=== PATIENT | female | born 1995 | race Caucasian/White ===

== ENCOUNTER → 2023-02-19 | Outpatient (CLI) | payer OTHER, SELFPAY ==
[2023-02-19 16:03] LABS: Absolute Lymphocyte Count 2.08 X10^3/uL (0.83-4.51); Absolute Neutrophil Count 11.3 X10^3/uL (2.0-7.7); Basophil# 0.03 X10^3/uL; Basophil% 0.2 % (0-1); Eosinophils% 0.7 % (0-5); Hematocrit 33.4 % (37-47); Hemoglobin 11.1 g/dL (12.0-15.0); Lymphocyte # 2.08 X10^3/ul (0.83-4.51); Lymphocyte % 14.5 % (19-41); Mean Corp Hgb Conc 33.2 g/dL (32-36); Mean Corpuscular Hgb 29.1 pg (27.0-32.0); Mean Corpuscular Volume 87.7 fL (81-99); Monocyte# 0.84 X10^3/uL; Monocyte% 5.8 % (0-10); NRBC Flagged by Analyzer 0 % (0-5); Neutrophil # 11.27 X10^3/uL (2.7-7.7); Neutrophil % 78.5 % (47-70); Platelet Count 401 K/mm3 (150-450); RBC Distribution Width CV 13.3 % (11.6-14.6); RBC Distribution Width SD 42.3 fl (35.1-43.9); Red Blood Count 3.81 M/mm3 (4.2-5.4); White Blood Count 14.4 K/mm3 (4.4-11.0)
[2023-02-19 17:11] LABS: HIV - WCH Non-Reactive (Nonreactive); Hepatitis B Surface Antigen Non-Reactive (Nonreactive); Hepatitis C Antibody Non-Reactive (Nonreactive); Rubella IgG Reactive (Nonreactive); Syphilis Antibodies Non-reactive
== END | disposition home or self-care (01) ==
LOC: LAB 15:15
PROVIDERS: Referring Provider Registered Nurse; Visit Provider Registered Nurse
DX: Z34.90 Encounter for supervision of normal pregnancy, unspecified, unspecified trimester (principal)
CPT/HCPCS: 36415; 85025; 86703; 86762; 86780; 86803; 86850; 86900; 86901; 87340

== ENCOUNTER → 2023-03-31 | Outpatient (CLI) | payer OTHER, SELFPAY ==
--- NOTE | 2023-03-31 12:47 | US_ITS ---
INDICATION: Evaluate anatomy EXAMINATION: Ultrasound US OB Greater Than 14 Weeks TECHNIQUE: Transabdominal pelvic ultrasound was performed. COMPARISON: No prior examinations are available for comparison. LMP: 11/13/2022 Beta-hCG: Unknown. Provided EGA: None. FINDINGS: INTRAUTERINE GESTATION(s): Single. HEART MOTION is 150 bpm. BIOMETRIC MEASUREMENTS: HEAD CIRCUMFERENCE: 4.6 cm cm which corresponds to 19 weeks and 6 days. BIPARIETAL DIAMETER: 17.1 cm cm which corresponds to 19 weeks and 5 days. ABDOMINAL CIRCUMFERENCE: 15.1 cm cm which corresponds to 20 weeks and 2 days. FEMORAL LENGTH: 3.1 cm cm which corresponds to 19 weeks and 5 days. ESTIMATED DUE DATE (COMFORT): 08/20/2023 ESTIMATED WEIGHT: 328 g +/- 49 g PRESENTATION: Cephalic AMNIOTIC FLUID INDEX (ALICE): Within normal limits but not measured. MV 6.3 cm BIOPHYSICAL PROFILE (BPP): Not assessed. PLACENTA: Anterior. There is no placenta previa or abruption. CERVIX: The cervix is closed measuring 4.2 cm in length. MATERNAL OVARIES: Not seen. FREE FLUID: None. ANATOMY: LATERAL VENTRICLES: Within normal limits. CHOROID PLEXUS: Visualized. MIDLINE FALX: Visualized. CAVUM SEPTUM PELLUCIDI: Not visualized. CEREBELLUM: Unremarkable CISTERNA MAGNA: Within normal limits. UPPER LIP: Appears to be intact. FOUR CHAMBER HEART VIEW: Unremarkable. LEFT VENTRICULAR OUTFLOW TRACT: Visualized. RIGHT VENTRICULAR OUTFLOW TRACT: Visualized. STOMACH: Visualized. KIDNEYS: Visualized, no hydronephrosis. URINARY BLADDER: Visualized. UMBILICAL CORD INSERTION into the abdomen: Unremarkable. UMBILICAL CORD vessel number: Normal three vessel cord. SPINE: Appears to be unremarkable. UPPER AND LOWER EXTREMITIES: Present. GENDER: Appears to be female. US/OB Anatomy w/ Transvaginal IMPRESSION: Single live intrauterine with an estimated gestational age of 19 weeks and 5 days. The COMFORT is 08/20/2023. Electronically Signed: Pierre Ramirez MD at 8:51 EDT ,
== END | disposition home or self-care (01) ==
LOC: OPUS 12:46
PROVIDERS: Referring Provider Obstetrics & Gynecology; Visit Provider Obstetrics & Gynecology
DX: Z34.92 Encounter for supervision of normal pregnancy, unspecified, second trimester (principal)
CPT/HCPCS: 76805; 76817

== ENCOUNTER → 2023-05-27 | Outpatient (CLI) | payer OTHER, SELFPAY ==
[2023-05-27 13:55] LABS: Absolute Lymphocyte Count 2.13 X10^3/uL (0.83-4.51); Absolute Neutrophil Count 13.5 X10^3/uL (2.0-7.7); Basophil# 0.04 X10^3/uL; Basophil% 0.2 % (0-1); Eosinophils% 0.6 % (0-5); Hematocrit 31.3 % (37-47); Lymphocyte # 2.13 X10^3/ul (0.83-4.51); Lymphocyte % 12.7 % (19-41); Mean Corp Hgb Conc 31.9 g/dL (32-36); Mean Corpuscular Hgb 29.2 pg (27.0-32.0); Mean Corpuscular Volume 91.5 fL (81-99); Mean Platelet Vol. 9.5 fl (6.2-12.0); Monocyte# 0.92 X10^3/uL; Monocyte% 5.5 % (0-10); NRBC Flagged by Analyzer 0 % (0-5); Neutrophil # 13.49 X10^3/uL (2.7-7.7); Neutrophil % 80.2 % (47-70); Platelet Count 362 K/mm3 (150-450); RBC Distribution Width CV 14.1 % (11.6-14.6); RBC Distribution Width SD 47.3 fl (35.1-43.9); Red Blood Count 3.42 M/mm3 (4.2-5.4); White Blood Count 16.8 K/mm3 (4.4-11.0)
[2023-05-27 14:03] LABS: Glucose Challenge Gest 1H 50g 152 mg/dL (70-140)
[2023-05-27 14:58] LABS: HIV - WCH Non-Reactive (Nonreactive); Syphilis Antibodies Non-reactive
== END | disposition home or self-care (01) ==
LOC: PAVLAB 13:39
PROVIDERS: Referring Provider Nurse Practitioner Women's Health; Visit Provider Nurse Practitioner Women's Health
DX: Z34.90 Encounter for supervision of normal pregnancy, unspecified, unspecified trimester (principal)
CPT/HCPCS: 36415; 82950; 85025; 86703; 86780

== ENCOUNTER → 2023-06-04 | Outpatient (CLI) | payer OTHER, SELFPAY ==
[2023-06-04 09:35] LABS: Glucose GTT- Fasting 90 mg/dL (74-106)
[2023-06-04 09:54] LABS: Glucose GTT-30 minutes 153 mg/dL (110-170)
[2023-06-04 10:59] LABS: Glucose GTT- 1 Hour 166 mg/dL (120-170)
[2023-06-04 11:59] LABS: Glucose GTT- 2 Hour 132 mg/dL (70-120)
[2023-06-04 12:53] LABS: Glucose GTT- 3 Hour 98 mg/dL (74-106)
== END | disposition home or self-care (01) ==
LOC: LAB 08:35
PROVIDERS: PCP Family Medicine; Referring Provider Advanced Practice Midwife; Visit Provider Advanced Practice Midwife
DX: O99.810 Abnormal glucose complicating pregnancy (principal); Z3A.00 Weeks of gestation of pregnancy not specified
CPT/HCPCS: 82951; 82952

== ENCOUNTER → 2023-06-25 | Outpatient (CLI) | payer OTHER, SELFPAY ==
[2023-06-25 16:43] LABS: Absolute Lymphocyte Count 1.98 X10^3/uL (0.83-4.51); Absolute Neutrophil Count 12.4 X10^3/uL (2.0-7.7); Basophil# 0.02 X10^3/uL; Basophil% 0.1 % (0-1); Eosinophil# 0.12 X10^3/uL; Eosinophils% 0.8 % (0-5); Hematocrit 31.1 % (37-47); Hemoglobin 10.4 g/dL (12.0-15.0); Lymphocyte # 1.98 X10^3/ul (0.83-4.51); Lymphocyte % 12.6 % (19-41); Mean Corp Hgb Conc 33.4 g/dL (32-36); Mean Corpuscular Hgb 29.8 pg (27.0-32.0); Mean Corpuscular Volume 89.1 fL (81-99); Mean Platelet Vol. 10.1 fl (6.2-12.0); Monocyte# 1.14 X10^3/uL; Monocyte% 7.2 % (0-10); NRBC Flagged by Analyzer 0 % (0-5); Neutrophil # 12.39 X10^3/uL (2.7-7.7); Neutrophil % 78.7 % (47-70); Platelet Count 358 K/mm3 (150-450); RBC Distribution Width CV 13.9 % (11.6-14.6); RBC Distribution Width SD 45.3 fl (35.1-43.9); Red Blood Count 3.49 M/mm3 (4.2-5.4); White Blood Count 15.8 K/mm3 (4.4-11.0)
== END | disposition home or self-care (01) ==
LOC: LAB 16:06
PROVIDERS: PCP Family Medicine; Referring Provider Registered Nurse; Visit Provider Registered Nurse
DX: O99.019 Anemia complicating pregnancy, unspecified trimester (principal); Z3A.00 Weeks of gestation of pregnancy not specified
CPT/HCPCS: 36415; 85025

== ENCOUNTER → 2023-07-23 | Outpatient (CLI) | payer OTHER, SELFPAY ==
--- OUTSIDE RECORDS SUMMARY | 2023-07-23 20:46 | XMS RPT_ITS | CCD ---
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 Name Role Phone DAVIE MURPHY Unavailable Unavailab DONAL Mathews SR Unavailable Unavail able Stencel, Bebeto Unavailable Unavailable Stencel, Bebeto Unavailable Unavailable Wood, Gwen L Unavailable Unavailable Wood, Gwen Rodriguez Unavailable Unavailable Stencel, Bebeto Unavailable Unavailable Unavailable Primary Care Provider UnavailJOYCE Calvo Attending Unavailable SELF, SELF Referring Unavailable JOYCE VAZQUEZ Attending Unavailable JOYCE VAZQUEZ Referring Unavailable DONAL BUNCH Primary Care UnavailRAMIREZ Henning Attending Unavailable Donal Bunch Primary Care Provider René Bonilla Unavailable [phone] Unavailable Unavailable MD SABIHA GRIMALDO Attending Unavail able Irene, Dr. René Watts Primary Care Un available MD SABIHA GRIMALDO Referring Unavail able MD SABIHA GRIMALDO Attending Unavail able Irene, Dr. René Watts Primary Care Un available MD SABIHA GRIMALDO Referring Unavail able MD SABIHA GRIMALDO Attending Unavail able Irene, Dr. René Watts Primary Care Un available Allergies Allergy Classification Reported Allergen(s) Allergy Type Date of Onset Reaction(s) Facility (4 sources) SUMAtriptan; Translations: [SUMATRIPTAN] Drug Allergy 3 Shortness of Breath [facility] (5 sources) traMADol; Translations: [TRAMADOL] Drug Allergy 7 [facility] (8 sources) SUMAtriptan; Translations: [Imitrex] Drug Allergy [facility] Medications Current Medications Medication Drug Class(es) Dates Sig (Normalized) Sig (Original) acetaminophen 325 mg / HYDROcodone bitartrate 5 mg oral tablet (2 sources) Opioid Agonist Start: 07-09-2019 End: 07-10-2019 take 1 tablet by mouth every eight hours as needed for pain HYDROcodone-aceta minophen (NORCO) 5-325 mg per tablet Indications: Pain, dental Take 1 (one) tablet by mouth every 8 (eight) hours as needed for pain (Days supply per fill: {DAYS SUPPLY:1) . 3 tablet 0 07/09/2019 07/10/2019 Active Completed/Discontinued Medications Medication Drug Class(es) Dates Sig (Normalized) Sig (Original) sertraline 50 mg oral tablet (7 sources) Serotonin Reuptake Inhibitor Start: 09-25-2019 take 1 tablet by mouth once daily Sertraline HCl - 50 MG Oral Tablet Take 1 tablet daily Quantity: 90 Refills: 3 Ordered: 14-Sep-2022 Bebeto Dior MD Start : 25-Sep-2019 Active Problems Active Problems Problem Classification Problem Date Documented Da te Episodic/Chronic Acute and chronic tonsillitis (7 sources) Acute tonsillitis, unspecified; Translations: [Pharyngotonsillitis ] Episodic Anxiety disorders (7 sources) Anxiety; Translations: [Anxiety state, unspecified] Chronic Asthma (7 sources) Asthma; Translations: [Asthma, unspecified type, unspecified] Chronic Fever of unknown origin (1 source) Fever; Translations: [Fever, unspecified fever cause] Episodic Gastrointestinal hemorrhage (7 sources) Hematochezia; Translations: [Blood in stool] Episodic Headache; including migraine (7 sources) Migraine; Translations: [Migraine, unspecified, without mention of intractable migraine without mention of status migrainosus] Chronic Immunizations and screening for infectious disease (16 sources) Patient encounter status; Translations: [Other specified vaccination] Onset: 02-03-2023 Episodic Malaise and fatigue (7 sources) Fatigue; Translations: [Other malaise and fatigue] Episodic Menstrual disorders (1 source) Amenorrhea; Translations: [Absence of menstruation] Chronic Nausea and vomiting (1 source) Nausea and vomiting; Translations: [Nausea and vomiting, intractability of vomiting not specified, unspecified vomiting type] Episodic Other gastrointestinal disorders (1 source) Diarrhea; Translations: [Diarrhea, unspecified type] Episodic Other lower respiratory disease (7 sources) Dyspnea; Translations: [Other respiratory abnormalities] Episodic Other and delivery including normal (1 source) Urine test positive; Translations: [ examination or test, positive result] Episodic Other screening for suspected conditions (not mental disorders or infectious disease) (2 sources) Encounter for screening for malignant neoplasm of cervix; Translations: [Encounter for screening for malignant neoplasm of cervix] Onset: 02-03-2023 Episodic Other upper respiratory disease (7 sources) Pain in throat; Translations: [Throat pain] Episodic Residual codes; unclassified (4 sources) Gestation period, 12 weeks; Translations: [ state, incidental] Episodic Spondylosis; intervertebral disc disorders; other back problems (1 source) Acute low back pain; Translations: [Acute low back pain, unspecified back pain laterality, with sciatica presence unspecified] Episodic Past or Other Problems Problem Classification Problem Date Documented Da te Episodic/Chronic Disorders of teeth and jaw (1 source) Toothache; Translations: [Pain, dental] Episodic Fracture of lower limb (2 sources) Other fracture of upper and lower end of left fibula, subsequent encounter for closed fracture with routine healing; Translations: [Other fracture of upper and lower end of left fibula, subsequent encounter for closed fracture with routine healing] Onset: 01-18-2017 Episodic Unclassified (5 sources) Finding of menstrual bleeding; Translations: [Menstruation] Results Test Name Value Interpretation Reference Range Facil ity Vital Signs Date Time Vital Sign Value Performing Clinician Facility 02-03-2023 15:18-0400 Body height 154.94 cm René Ancanco Phone: [employer] [employer] Work Phone: 02-03-2023 15:18-0400 Body mass index (BMI) [Ratio] 26.16 kg/m2 [email or web address] Phone: [employer] Work Phone: 02-03-2023 15:18-0400 Body surface area Derived from formula 1.62 m2 [email or web address] Phone: [employer] Work Phone: 02-03-2023 15:18-0400 Body weight 62.8 kg René Ancanco Phone: [place] [address] [place] Work Phone: 02-03-2023 15:18-0400 Diastolic blood pressure 66 mm[Hg] René Jose Furness Work Phone: [facility] [employer] Work Phone: 02-03-2023 15:18-0400 Systolic blood pressure 124 mm[Hg] René T Furness Work Phone: [place] [address] [place] Work Phone: 01-08-2023 14:18-0400 Body height 154.94 cm René Jose Furness Work Phone: [facility] [address] [place] Work Phone: 01-08-2023 14:18-0400 Body mass index (BMI) [Ratio] 26.12 kg/m2 René Jose Furness Work Phone: [place] [address] [place] Work Phone: 01-08-2023 14:18-0400 Body surface area Derived from formula 1.61 m2 René T Furness Work Phone: [place] [facility] [address] [place] Work Phone: 01-08-2023 14:18-0400 Body weight 62.7 kg René T Furness Work Phone: [place] [address] [place] Work Phone: 01-08-2023 14:18-0400 Diastolic blood pressure 64 mm[Hg] René T Furness Work Phone: [place] [address] [place] Work Phone: 01-08-2023 14:18-0400 Systolic blood pressure 122 mm[Hg] René T Furness Work Phone: [place] [facility] [address] [place] Work Phone: 07-09-2019 04:35-0500 BMI (Body Mass Index) 26.45 kg/m2 [facility] 07-09-2019 04:35-0500 Body Temperature 97.81 [degF] [facility] 07-09-2019 04:35-0500 Body weight 63.5 kg [facility] 07-09-2019 04:35-0500 BP Diastolic 72 mm[Hg] [facility] 07-09-2019 04:35-0500 BP Systolic 122 mm[Hg] [facility] 07-09-2019 04:35-0500 Height 154.9 cm [facility] 07-09-2019 04:35-0500 Pulse (Heart Rate) 114 /min [facility] 07-09-2019 04:35-0500 Pulse Oximetry 100 % [facility] 07-09-2019 04:35-0500 Respiratory Rate 18 /min [facility] 08-15-2018 20:04-0500 BMI (Body Mass Index) 29.48 kg/m2 [facility] Work Phone: 08-15-2018 20:04-0500 Body Temperature 100.6 [degF] [facility] Work Phone: 08-15-2018 20:04-0500 BP Diastolic 77 mm[Hg] [facility] Work Phone: 08-15-2018 20:04-0500 BP Systolic 128 mm[Hg] [facility] Work Phone: 08-15-2018 20:04-0500 Height 154.9 cm [facility] Work Phone: 08-15-2018 20:04-0500 Pulse (Heart Rate) 125 /min [facility] Work Phone: 08-15-2018 20:04-0500 Pulse Oximetry 98 % [facility] Work Phone: 08-15-2018 20:04-0500 Respiratory Rate 16 /min Joyce [facility] Work Phone: 08-15-2018 20:04-0500 Weight 70.76 kg Joyce [facility] Work Phone: Encounters Encounter Date Encounter Type Care Provider Facility Start: 02-09-2023 Chart Update René T Furn ess Work Phone: [facility] [address] [place] Work Phone: Start: 02-05-2023 Chart Update René T Furn ess Work Phone: [facility] [address] [place] Work Phone: Start: 02-04-2023 Chart Update René T Furn ess Work Phone: [facility] [address] [place] Work Phone: Start: 02-03-2023 Office outpatient ne w 45 minutes René T Furness Work Phone: [facility] [address] [place] Work Phone: Start: 02-03-2023 ambulatory MD SABIHA GRIMALDO Facility:[facility] Start: 01-08-2023 Office outpatient ne w 30 minutes René T Furness Work Phone: [facility] [address] [place] Work Phone: Start: 01-08-2023 ambulatory MD SABIHA GRIMALDO Facility:[id number] Start: 09-14-2022 AUDIT René T Furn ess Work Phone: [facility] Work Phone: Start: 08-26-2021 AUDIT René T Furn ess Work Phone: [facility] Work Phone: Start: 07-09-2019 End: 07-09-2019 Emergency department patient visit DONAL OSBORNE [facility] Start: 07-09-2019 End: 07-09-2019 Emergency department patient visit Ramirez Jay Work Phone: [facility] Emergency Department Procedures Date Procedure Procedure Detail Performing Clinician Start: 08-15-2018 End: 08-15-2018 Urnls dip stick/tablet rgnt non-auto w/o micrscp Joyce Vazquez Work Phone: Start: 08-15-2018 End: 08-15-2018 Iaadiadoo influenza Joyce Vazquez Work Phone: Start: 08-15-2018 End: 08-15-2018 Gluc bld gluc mntr dev cleared fda spec home use Joyce Vazquez Work Phone: No history of surgery Deric Garcia [employer] Work Phone: Plan of Treatment Date Care Activity Detail Author Start: 02-24-2023 EPVOB, Provider: Sabiha Grimaldo, Status: Pen, Time: 3:45 PM EPVOB, Provider: Sabiha Grimaldo, Status: Pen, Time: 3:45 PM [employer] [employer] Work Phone: Start: 02-03-2023 EPVOB, Provider: Sabiha Grimaldo, Status: Pen, Time: 2:45 PM EPVOB, Provider: Sabiha Grimaldo, Status: Pen, Time: 2:45 PM [facility] [employer] Work Phone: Start: 09-02-2021 EPV, Provider: Bebeto Dior, Status: Pen, Time: 8:20 AM EPV, Provider: Bebeto Dior, Status: Pen, Time: 8:20 AM [facility] Work Phone: Start: 2019 Influenza vaccination INFLUENZA VACC INE (#1) [facility] Start: 2019 Influenza vaccinatio n given SEQUENTIAL INFLUENZA VACCINE (#1) [facility] Start: 08-15-2018 End: 08-15-2018 Ambulatory 08/15/2018 Lab Encounter Clinical Pathology/Laboratory Medicine Joyce Vazquez, INCINERATOR OPERATOR [address] [place] [address] [phone] [facility] Immunizations Immunization Date Immunization Notes Care Provider Fa keyur 08-28-2020 Moderna COVID-19 Vaccine 100 MCG/0.5ML Intramuscular Suspension René Bonilla Work Phone: [facility] Work Phone: Payers Date Payer Category Payer Unknown 2016 Unknown [id number] 2016 Unknown xxxxxxxxxxxx [id number] 1995 Unknown [id number] 1995 Unknown [id number] [id number] 1995 Unknown [id number] [id number] 1995 Unknown [id number] 2.16. [id number] 1995 Unknown [id number] [id number]. [id number] 1995 Unknown [id number] 2.16. [id number] Unknown [id number] Social History Date Type Detail Facility Start: 08-15-2018 End: 07-09-2019 Tobacco smoking status NHIS Current every day smoker [facility] Work Phone: Start: 08-15-2018 End: 07-09-2019 Cigarettes smoked current (pack per day) - Reported [facility] Work Phone: Clinical Note 02-03-2023 Note Date & Type Note Facility 02-03-2023 Note 18 Date of Procedure: 02/03/2023 Pathologist: [facility], Cytology Date Reported: 02/08/2023 Date Received: 02/04/2023 Submitting Physician: SABIHA GRIMALDO MD FINAL CYTOLOGICAL INTERPRETATION A. THINPREP PAP CERVICAL: Specimen Adequacy: SATISFACTORY FOR EVALUATION. Quality Indicator: Absence of endocervical/transformation zone component. General Categorization: NEGATIVE FOR INTRAEPITHELIAL LESION OR MALIGNANCY. Ancillary Testing: Specimen does not meet the requisition-stated criteria for HPV testing. See Pap test interpretation above. This specimen has been analyzed by the [employer] System ([employer] an automated imaging and review system, which assists the laboratory in evaluating cells on ThinPrep Pap tests. Following automated imaging, selected reyes from every slide were reviewed by a cleaning staff supervisor and/or pathologist. Electronically Signed Out By [facility], Cytology//IK By the signature on this report, the individual or group listed as making the Final Interpretation/Diagnosis certifies that they have reviewed this case. Diagnostic interpretation performed at [facility] [address] [address] [place] [id number] Educational Note: Cervical cytology is a screening procedure primarily for squamous cancers and precursors and has associated false-negative and false-positive results as evidenced by published data. Your patient?s test should be interpreted in this context, together with patient?s history and clinical findings. Regular sampling and follow-up of unexplained clinical signs and symptoms are recommended to minimize false negative results. Clinical History Date of Last Menstrual Period: 11/11/2022 Other Clinical Conditions: HPV Reflex for ASC-US only - Include HPV Genotype Clinical Diagnosis History: Encounter for Papanicolaou smear of cervix - (Z12.4); Screen for STD (sexually transmitted disease) - (Z11.3) Source of Specimen A: THINPREP PAP CERVICAL [facility] Department of Pathology [address] [place] [address] [facility] History of Present illness Narrative 10-24-2022 Note Date & Type Note Facility 10-24-2022 History of Presen t illness Narrative Shortness and states she has been doing menstrual flow since October. She has some nausea and breast tenderness. Denies any vaginal bleeding or abdominal pain. Patient states she has a history of depression. [employer] Phone: Summary Purpose Family History No Family History Records FoundUnknown Family Member Name Dates Details Family history of asthma: Mo ther(V17.5, Z82.5) Status:Active Family history of gastroesop hageal reflux disease: Father(V18.59, Z83.79) Status:Active Unknown Family Member Name Dates Details Family history of asthma: Mo ther(V17.5, Z82.5) Status:Active Family history of gastroesop hageal reflux disease: Father(V18.59, Z83.79) Status:Active Unknown Family Member Name Dates Details Family history of asthma: Mo ther(V17.5, Z82.5) Status:Active Family history of gastroesop hageal reflux disease: Father(V18.59, Z83.79) Status:Active Family history of diabetes m ellitus: Grandmother(V18.0, Z83.3) Status:Active Family history of migraine h eadaches: Mother(V17.2, Z82.0) Status:Active Unknown Family Member Name Dates Details Family history of asthma: Mo ther(V17.5, Z82.5) Status:Active Family history of gastroesop hageal reflux disease: Father(V18.59, Z83.79) Status:Active Family history of diabetes m ellitus: Grandmother(V18.0, Z83.3) Status:Active Family history of migraine h eadaches: Mother(V17.2, Z82.0) Status:Active Unknown Family Member Name Dates Details Family history of asthma: Mo ther(V17.5, Z82.5) Status:Active Family history of gastroesop hageal reflux disease: Father(V18.59, Z83.79) Status:Active Family history of diabetes m ellitus: Grandmother(V18.0, Z83.3) Status:Active Family history of migraine h eadaches: Mother(V17.2, Z82.0) Status:Active Unknown Family Member Name Dates Details Family history of asthma: Mo ther(V17.5, Z82.5) Status:Active Family history of gastroesop hageal reflux disease: Father(V18.59, Z83.79) Status:Active Family history of diabetes m ellitus: Grandmother(V18.0, Z83.3) Status:Active Family history of migraine h eadaches: Mother(V17.2, Z82.0) Status:Active Unknown Family Member Name Dates Details Family history of asthma: Mo ther(V17.5, Z82.5) Status:Active Family history of gastroesop hageal reflux disease: Father(V18.59, Z83.79) Status:Active Family history of diabetes m ellitus: Grandmother(V18.0, Z83.3) Status:Active Family history of migraine h eadaches: Mother(V17.2, Z82.0) Status:Active Advance Directives No Advanced Directives Records FoundDocuments on File Type Date Recorded 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 Await culture results. Tylenol 500-650mg every 6 hours or Ibuprofen 400mg every 8 hours as needed for pain & fever. Remain hydrated as much as possible Continue all other medications as previously prescribed by other providers. Follow-up with Primary Care Provider or return to clinic in 5-7 days if not improving or worsening of symptoms Go to the nearest Emergency Department for any Chest Pain or Shortness of Breath Treating Diarrhea Diarrhea happens when you have loose, watery, or frequent bowel movements. It is a common problem with many causes. Most cases of diarrhea clear up on their own. But certain cases may need treatment.Be sure to see your healthcare provider if your symptoms do not improve within a few days. Getting relief Treatment of diarrhea depends on its cause. Diarrhea caused by bacterial or parasite infection is often treated with antibiotics. Diarrhea caused by other factors, such as a stomach virus, often improves with simple home treatment. The tips below may also help relieve your symptoms. Drink plenty of fluids. This helps prevent too much fluid loss (dehydration). Water, clear soups, and electrolyte solutions are good choices. Avoid alcohol, coffee, tea, and milk. These can irritate your intestines and make symptoms worse. Suck on ice chips if drinking makes you queasy. Return to your normal diet slowly. You may want to eat bland foods at first, such as rice and toast. Also, you may need to avoid certain foods for a while, such as dairy products. These can make symptoms worse. Ask your healthcare provider if there are any other foods you should avoid. If you were prescribed antibiotics, take them as directed. Do not take anti-diarrhea medicines without asking your healthcare provider first. Call your healthcare provider Call your healthcare provider if you have any of the following: A fever of 100.4 F (38.0 C) or higher, or as directed by your healthcare provider Severe pain Worsening diarrhea or diarrhea for more than 2 days Bloody vomit or stool Signs of dehydration (dizziness, dry mouth and tongue, rapid pulse, dark urine) Date Last Reviewed: 01/24/201619999436-[address] [employer] [place] [address]. All rights reserved. This information is not intended as a substitute for professional medical care. Always follow yourhealthcare professional's instructions. Febrile Illness with Uncertain Cause (Adult) You have a fever, but the cause is unknown. A fever is a natural reaction of the body to an illnesssuch as infection due to a virus or bacteria. Sometimes other conditions such as cancer or immune diseases can cause fever, especially if the fever has lasted for more than a week or 2. In most cases, the temperature itself is not harmful. It actually helps the body fight infections. A fever does not need to be treated unless you feel very uncomfortable. Sometimes a fever can be an early sign of a more serious infection, so make sure to follow up if your condition worsens. Home care Unless given other instructions by your healthcare provider, follow these guidelines when caring for yourself at home. General care If your symptoms are not severe, rest at home for the first 2 to 3 days. When you resume activity, don't let yourself get too tired. For your overall health, don't smoke. Also avoid being exposed to secondhand smoke. Your appetite may be poor, so a light diet is fine. Avoid dehydration by drinking 6 to 8 glasses offluids per day (such as water, soft drinks, sports drinks, juices, tea, or soup). If you have congestion, extra fluids will help loosen secretions in the nose and lungs. Medicines You can take acetaminophen or ibuprofen for pain or to lower your temperature, unless you were given a different medicine to use. (Note: If you have chronic liver or kidney disease or have ever had astomach ulcer or gastrointestinal bleeding, talk with your healthcare provider before using these medicines. Also talk to your provider if you are taking medicine to prevent blood clots.) Aspirin should never be given to anyone younger than 18 years of age who is ill with a viral infection or fever. It may cause severe liver or brain damage. If you were given antibiotics for an infection, take them until they are used up, or your healthcare provider tells you to stop. It is important to finish the antibiotics even though you feel better.This is to make sure the infection has cleared. Be aware that antibiotics are not usually given fora viral infection or a fever with an unknown cause. Wwqt-leb-eprfmel medicines will not shorten the duration of the illness. However, they may be helpful for the following symptoms: cough, sore throat, or nasal and sinus congestion. Ask your pharmacist for product suggestions. (Note: Don't use decongestants if you have high blood pressure.) Follow-up care Follow up with your healthcare provider, or as advised. If a culture or other lab tests were done, you will be notified if your treatment needs to be changed. You can call as directed for the results. If X-rays, a CT, or an ultrasound were done, a specialist will review them. You will be notified ofany findings that may affect your care. Call 911 Call 911 if any of these occur: Trouble breathing or swallowing, or wheezing Chest pain Confusion Extreme drowsiness or trouble awakening Fainting or loss of consciousness Rapid heart rate Low blood pressure Vomiting blood, or large amounts of blood in stool Seizure When to seek medical advice Call your healthcare provider right away if any of these occur: Cough with lots of colored sputum (mucus) or blood in your sputum Severe headache Face, neck, throat, or ear pain Feeling drowsy Abdominal pain Repeated vomiting or diarrhea Joint pain or a new rash Burning when urinating Fever of 100.4 F (38 C) or higher, or as directed by your healthcare provider Feeling weak or dizzy Date Last Reviewed: 05/26/201719995852-8581 [employer]. [address] [place] [address], [place] [address]. All rights reserved. This information is not intended as a substitute for professional medical care. Always follow yourhealthcare professional's instructions. in this encounter History of Present Illness * Joyce Vazquez, INCINERATOR OPERATOR - 08/15/2018 7:55 PM EST Formatting of this note may be different from the original. URGENT CARE eNCOUnter CHIEF COMPLAINT Back Pain (vomiting, dizzy, ) and Diarrhea HPI Jayna Jean is a 23 y.o. female who presents today for severe back pain that she cannot identify a cause to as she denies hx of renal calculi. She states that she has barely had anything to eat or drink today due to vomiting 3-4 times & diarrhea 5-6 times. She states that she is very weak & feels as if she is going to pass out. She denies cough or nasal congestion but has a headache. She complains of i've never been so cold in my life She states that she was treated for croup in Jul w/ Amoxicillin but she kept forgetting to take it so she never completed the course REVIEW OF SYSTEMS Review of Systems Constitutional: Positive for chills, fatigue and fever. HENT: Negative for congestion, ear pain and sore throat. Respiratory: Negative for cough. Gastrointestinal: Positive for abdominal pain, diarrhea, nausea and vomiting. Genitourinary: Negative for difficulty urinating. Musculoskeletal: Positive for back pain. Neurological: Positive for headaches. PAST MEDICAL HISTORY No past medical history on file. SURGICAL HISTORY No past surgical history on file. CURRENT MEDICATIONS No current outpatient prescriptions on file. No current facility-administered medications for this visit. ALLERGIES Allergies not on file FAMILY HISTORY No family history on file. SOCIAL HISTORY Social History Social History Marital status: Single Spouse name: N/A Number of children: N/A Years of education: N/A Occupational History Not on file. Social History Main Topics Smoking status: Not on file Smokeless tobacco: Not on file Alcohol use Not on file Drug use: Unknown Sexual activity: Not on file Other Topics Concern Not on file Social History Narrative No narrative on file PHYSICAL EXAM Blood pressure 128/77, pulse 125, temperature 100.6 F (38.1 C), temperature source Temporal, resp. rate 16, height 1.549 m (5' 1 ), weight 70.8 kg (156 lb), last menstrual period 07/26/2018, SpO2 98 %. Physical Exam Constitutional: She is oriented to person, place, and time. She appears well- developed and well-nourished. HENT: Right Ear: Tympanic membrane normal. Left Ear: Tympanic membrane normal. Mouth/Throat: Oropharynx is clear and moist. No posterior oropharyngeal edema or posterior oropharyngeal erythema. Tonsils are 3+ on the right. Tonsils are 3+ on the left. Neck: Normal range of motion. Cardiovascular: Regular rhythm and normal heart sounds. Tachycardia present. Pulmonary/Chest: Effort normal and breath sounds normal. Abdominal: Soft. There is no tenderness. Lymphadenopathy: She has no cervical adenopathy. Neurological: She is alert and oriented to person, place, and time. Skin: Skin is warm and dry. Psychiatric: She has a normal mood and affect. Her behavior is normal. Nursing note and vitals reviewed. Labs Glucose 130 Rapid Flu Neg Lab Results Component Value Date APPEARANCE clear 08/15/2018 COLOR yellow 08/15/2018 KETONES 40 08/15/2018 SPECIFICGRAV 1.025 08/15/2018 BLOOD neg 08/15/2018 PH 7.0 08/15/2018 PROTEIN neg 08/15/2018 UROBILINOGEN 0.2 08/15/2018 NITRITE neg 08/15/2018 LEUKOCYTE neg 08/15/2018 Diagnosis, Assessment & Plan: Jayna was seen today for back pain and diarrhea. Diagnoses and all orders for this visit: Acute low back pain, unspecified back pain laterality, with sciatica presence unspecified - URINE CULTURE; Future - POCT URINALYSIS DIPSTICK NON AUTOMATED Nausea and vomiting, intractability of vomiting not specified, unspecified vomiting type - POCT GLUCOSE, FINGER STICK - ondansetron 4 MG Tab Dispersible tablet; Take 1 tablet by mouth every 8 hours as needed for up to5 days. Diarrhea, unspecified type - POCT GLUCOSE, FINGER STICK Fever, unspecified fever cause - POCT INFLUENZA, A B Due to clinical presentation patient and ketones in urine she will be treated presumptively for UTIwith culture sent to lab to confirm. Start Zofran as prescribed. Await culture results. Tylenol 500-650mg every 6 hours or Ibuprofen 400mg every 8 hours as needed for pain & fever. Remain hydrated as much as possible Continue all other medications as previously prescribed by other providers. Follow-up with Primary Care Provider or return to clinic in 5-7 days if not improving or worsening of symptoms Go to the nearest Emergency Department for any Chest Pain or Shortness of Breath Joyce Vazquez CNP 08/15/2018 in this encounter Assessments Diagnosis Acute low back pain, unspecified back pain laterality, with sciatica presence unspecified- Primary Nausea and vomiting, intractability of vomiting not specified, unspecified vomiting type Diarrhea, unspecified type Fever, unspecified fever cause Diagnosis Pain, dental Discharge Instructions * Instructions* Ramirez Jay, - 07/09/2019 Follow-up with your dentist on Wednesday. Return to the ED immediately for any new or worsening symptoms or concerns * Attachments The following attachments cannot be sent through Care Everywhere. * Tooth and Gum Pain (Greek) documented in this encounter Chief Complaint New Patient is here due to amenorrhea. LMP: 11/11/2022. Patient c/o nausea, and breast tenderness. Patient states a couple of weeks ago she had some mild cramps. Additional Source Comments INFORMATION SOURCE (unrecogn ized section and content) DATE CREATED AUTHOR AUTHOR'S ORGANIZ ATION 07/29/2018 [facility] DATE CREATED AUTHOR AUTHOR'S ORGANIZ ATION 08/25/2018 [facility] DATE CREATED AUTHOR AUTHOR'S ORGANIZ ATION 08/27/2018 [facility] DATE CREATED AUTHOR AUTHOR'S ORGANIZ ATION 04/05/2019 [facility] DATE CREATED AUTHOR AUTHOR'S ORGANIZ ATION 07/09/2019 [facility] DATE CREATED AUTHOR AUTHOR'S ORGANIZ ATION 01/09/2023 [employer] DATE CREATED AUTHOR AUTHOR'S ORGANIZ ATION 04/06/2023 [facility] Reason for Visit (unrecogniz ed section and content) Reason Comments Results Reason Comments Dental Pain Ramirez Jay, - 07/09/2019 4:49 AM Nely Gregg RN - 07/09/2019 4:38 AM EST ED Notes (unrecognized secti on and content) ED PROVIDER NOTE [facility] EMERGENCY DEPARTMENT NAME: Jayna Jean AGE: 24 y.o. : 1995 VISIT DATE: 07/09/2019 CSN: [id number] PCP: Donal Bunch MD Chief Complaint Patient presents with Dental Pain 24-year-old female presents the emergency department for evaluation of right upper dental pain. Gradual onset Wednesday. No traumatic injury. Pain is localized to the right upper teeth without radiation into the face. No facial pain edema or erythema. No fever or chills. No headache. No neck pain or neck stiffness. No chest pain palpitations or shortness of breath. No abdominal pain. Last menstrual cycle several weeks ago. Denies chance of . Past Medical History: Diagnosis Date Anxiety History reviewed. No pertinent surgical history. History reviewed. No pertinent family history. Social History Socioeconomic History Marital status: Single Spouse name: Not on file Number of children: Not on file Years of education: Not on file Highest education level: Not on file Occupational History Not on file Social Needs Financial resource strain: Not on file Food insecurity Worry: Not on file Inability: Not on file Transportation needs Medical: Not on file Non-medical: Not on file Tobacco Use Smoking status: Current Every Day Smoker Packs/day: 1.00 Years: 3.00 Pack years: 3.00 Smokeless tobacco: Never Used Substance and Sexual Activity Alcohol use: Yes Drug use: Never Sexual activity: Not on file Lifestyle Physical activity Days per week: Not on file Minutes per session: Not on file Stress: Not on file Relationships Social connections Talks on phone: Not on file Gets together: Not on file Attends scientology service: Not on file Active member of club or organization: Not on file Attends meetings of clubs or organizations: Not on file Relationship status: Not on file Other Topics Concern Not on file Social History Narrative Not on file Previous Medications Medication Sig oxyCODONE-acetaminophen (PERCOCET) 5-325 mg per tablet Allergies Allergen Reactions Sumatriptan Shortness Of Breath Tramadol Review of Systems HENT: Positive for dental problem. Negative for congestion, drooling, ear discharge, ear pain, facial swelling, hearing loss, mouth sores, nosebleeds, postnasal drip, rhinorrhea, sinus pressure, sinus pain, sneezing, sore throat, tinnitus, trouble swallowing and voice change. All other systems reviewed and are negative. Patient Vitals for the past 24 hrs: BP Temp Temp src Pulse Resp SpO2 Height Weight 07/09/19 0435 122/72 97.8 F (36.6 C) Oral (!) 114 18 100 % 5' 1 63.5 kg (140 lb) Physical Exam Vitals signs reviewed. Constitutional: General: She is not in acute distress. Appearance: Normal appearance. She is normal weight. She is not ill-appearing, toxic-appearing or diaphoretic. HENT: Head: Normocephalic and atraumatic. Comments: Dental pain to percussion in the area notated on diagram. No facial edema or erythema. No sinus tenderness to percussion. Right Ear: Tympanic membrane, ear canal and external ear normal. Left Ear: Tympanic membrane, ear canal and external ear normal. Nose: Nose normal. No congestion or rhinorrhea. Mouth/Throat: Mouth: Mucous membranes are moist. Dentition: Dental tenderness present. Pharynx: Oropharynx is clear. No oropharyngeal exudate or posterior oropharyngeal erythema. Eyes: Extraocular Movements: Extraocular movements intact. Conjunctiva/sclera: Conjunctivae normal. Pupils: Pupils are equal, round, and reactive to light. Neck: Musculoskeletal: Normal range of motion and neck supple. No neck rigidity or muscular tenderness. Cardiovascular: Rate and Rhythm: Normal rate and regular rhythm. Heart sounds: Normal heart sounds. Comments: Heart rate 92 on my exam by auscultation and palpation Pulmonary: Effort: Pulmonary effort is normal. Breath sounds: Normal breath sounds. Musculoskeletal: Normal range of motion. Right lower leg: No edema. Left lower leg: No edema. Lymphadenopathy: Cervical: No cervical adenopathy. Skin: General: Skin is warm and dry. Neurological: General: No focal deficit present. Mental Status: She is alert and oriented to person, place, and time. Cranial Nerves: No cranial nerve deficit. Psychiatric: Mood and Affect: Mood normal. Behavior: Behavior normal. Laboratory & Radiographic Imaging (if done): No results found for this visit on 07/09/19. No orders to display Procedures MDM Number of Diagnoses or Management Options Diagnosis management comments: Patient will be placed on clindamycin. Patient agrees to follow-up with her dentist on Wednesday as planned The patient has been informed that they may have pre-hypertension or hypertension based on a blood pressure reading in the Emergency Department. I recommend that the patient call the primary care provider listed on their discharge instructions or a physician of their choice as soon as possible to arrange follow-up in the next 4 weeks for further evaluation of possible pre-hypertension or hypertension. . Clinical Impression: 1. Pain, dental ED Disposition ED Disposition Condition Comment Discharge Zay Jayna Jean discharged to home/self care in stable condition. Follow-up Information Follow-up information has not been specified. Contact information for after-discharge care Follow-up information has not been specified. New Prescriptions clindamycin (CLEOCIN) 150 MG capsule Take 2 (two) capsules (300 mg total) by mouth 4 (four) times a day for 7 days . HYDROcodone-acetaminophen (NORCO) 5-325 mg per tablet Take 1 (one) tablet by mouth every 8 (eight) hours as needed for pain (Days supply per fill: {DAYS SUPPLY:1) . Ramirez Jay DO 07/09/19 0505 Complaining of right sided possible dental pain. States pain is so severe that unable to sleep. documented in this encounter FOR RECORDS PERTAINING TO PATIENTS WHO ARE OR HAVE BEEN ENROLLED IN A CHEMICAL DEPENDENCY/SUBSTANCEABUSE PROGRAM, SOME INFORMATION MAY BE OMITTED. This clinical summary was aggregated from multiple sources. Caution should be exercised in using it in the provision of clinical care. This summary normalizes information from multiple sources, and as a consequence, information in this document may materially change the coding, format and clinical context of patient data. In addition, data may be omitted in some cases. CLINICAL DECISIONS SHOULD BE BASED ON THE PRIMARY CLINICAL RECORDS. [employer] provides no warranty or guarantee of the accuracy or completeness of information in this document.
== END | disposition home or self-care (01) ==
PROVIDERS: PCP Family Medicine; Referring Provider Obstetrics & Gynecology; Visit Provider Obstetrics & Gynecology
DX: Z34.90 Encounter for supervision of normal pregnancy, unspecified, unspecified trimester (principal)
CPT/HCPCS: 87081

== ENCOUNTER 2023-08-01 21:55 | Outpatient (CLI) | payer OTHER, SELFPAY ==
--- OUTSIDE RECORDS SUMMARY | 2023-08-01 21:58 | XMS RPT_ITS | CCD ---
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 Name Role Phone DAVIE MURPHY Unavailable Unavailab DONAL Mathews SR Unavailable Unavail able Stencel, Bebeto Unavailable Unavailable Stencel, Bebeto Unavailable Unavailable Wood, Gwen L Unavailable Unavailable Wood, Gwen Rodriguez Unavailable Unavailable Stencel, Bebeto Unavailable Unavailable Unavailable Primary Care Provider UnavailJOYCE Calvo Attending Unavailable SELF, SELF Referring Unavailable JOYCE VAZQUEZ Attending Unavailable JOYCE VAZQUEZ Referring Unavailable ODNAL BUNCH Primary Care UnavailRAMIREZ Henning Attending Unavailable Donal Bunch Primary Care Provider René Bonilla Unavailable Unavailable Unavailable MD SABIHA GRIMALDO Attending Unavail [...] [SUMATRIPTAN] Drug Allergy [address] [facility] Repository (5 sources) traMADol; Translations: [TRAMADOL] Drug Allergy 7 [facility] Repository (8 sources) SUMAtriptan; Translations: [Imitrex] Drug Allergy [facility] Repository Medications Current Medications Medication Drug Class(es) [...] 02-03-2023 15:18-0400 Body height 154.94 cm [facility] Phone: [facility] [employer] Work Phone: 02-03-2023 15:18-0400 Body mass index (BMI) [Ratio] 26.16 kg/m2 [employer] Phone: [employer] Work Phone: 02-03-2023 15:18-0400 Body surface area Derived from formula 1.62 m2 [employer] Phone: [employer] Work Phone: 02-03-2023 15:18-0400 Body weight 62.8 kg [facility]é [facility] Phone: [place] [address] [address] Work Phone: 02-03-2023 15:18-0400 Diastolic blood pressure 66 mm[Hg] René Jose Furness Work Phone: [facility] Work Phone: 02-03-2023 15:18-0400 Systolic blood pressure 124 mm[Hg] René T Furness Work Phone: [place] [address] [address] Work Phone: 01-08-2023 14:18-0400 Body height 154.94 cm René Jose Furness Work Phone: [place] [address] [address] Work Phone: 01-08-2023 14:18-0400 Body mass index (BMI) [Ratio] 26.12 kg/m2 René Jose Furness Work Phone: [place] [address] [address] Work Phone: 01-08-2023 14:18-0400 Body surface area Derived from formula 1.61 m2 René T Furness Work Phone: [place] [address] [address] Work Phone: 01-08-2023 14:18-0400 Body weight 62.7 kg René T Furness Work Phone: [place] [address] [address] Work Phone: 01-08-2023 14:18-0400 Diastolic blood pressure 64 mm[Hg] René T Furness Work Phone: [place] [address] [address] Work Phone: 01-08-2023 14:18-0400 Systolic blood pressure 122 mm[Hg] René T Furness Work Phone: [place] [address] [address] Work Phone: 07-09-2019 04:35-0500 BMI (Body Mass Index) 26.45 kg/m2 [facility] 07-09-2019 04:35-0500 Body Temperature 97.81 [degF] [facility] 07-09-2019 04:35-0500 Body weight 63.5 kg [facility] 07-09-2019 04:35-0500 BP Diastolic 72 mm[Hg] [facility] 07-09-2019 04:35-0500 BP Systolic 122 mm[Hg] [facility] 07-09-2019 04:35-0500 Height 154.9 cm [facility] 07-09-2019 04:35-0500 Pulse (Heart Rate) 114 /min [facility] 07-09-2019 04:35-0500 Pulse Oximetry 100 % [facility] 07-09-2019 04:35-0500 Respiratory Rate 18 /min [facility] 08-15-2018 20:04-0500 BMI (Body Mass Index) 29.48 kg/m2 [facility] Work Phone: 08-15-2018 20:04-0500 Body Temperature 100.6 [degF] [facility] Work Phone: 08-15-2018 20:04-0500 BP Diastolic 77 mm[Hg] [facility] Work Phone: 08-15-2018 20:04-0500 BP Systolic 128 mm[Hg] [facility] Work Phone: 08-15-2018 20:04-0500 Height 154.9 cm [facility] Work Phone: 08-15-2018 20:04-0500 Pulse (Heart Rate) 125 /min [facility] Work Phone: 08-15-2018 20:04-0500 Pulse Oximetry 98 % [facility] Work Phone: 08-15-2018 20:04-0500 Respiratory Rate 16 /min Joyce [facility] Work Phone: 08-15-2018 20:04-0500 Weight 70.76 kg Joyce [facility] Work Phone: Encounters Encounter Date Encounter Type Care Provider Facility Start: 02-09-2023 Chart Update René T Furn ess Work Phone: [facility] [address] Work Phone: Start: 02-05-2023 Chart Update René T Furn ess Work Phone: [facility] [address] Work Phone: Start: 02-04-2023 Chart Update René T Furn ess Work Phone: [facility] [address] Work Phone: Start: 02-03-2023 Office outpatient ne w 45 minutes René T Furness Work Phone: [facility] [address] Work Phone: Start: 02-03-2023 ambulatory MD SABIHA GRIMALDO Facility:[facility] Start: 01-08-2023 Office outpatient ne w 30 minutes René T Furness Work Phone: [facility] [address] Work Phone: Start: 01-08-2023 ambulatory MD SABIHA GRIMALDO Facility:[id number] Start: 09-14-2022 AUDIT René T Furn ess Work Phone: [facility] Work Phone: Start: 08-26-2021 AUDIT René T Furn ess Work Phone: [facility] Work Phone: Start: 07-09-2019 End: 07-09-2019 Emergency department patient visit DONAL OSBORNE [facility] Start: 07-09-2019 End: 07-09-2019 Emergency department patient visit Ramirez Jay Work Phone: [facility] Emergency Department Procedures Date Procedure Procedure Detail [...] Sabiha Grimaldo, Status: Pen, Time: 3:45 PM [facility] Work Phone: Start: 02-03-2023 EPVOB, Provider: Sabiha Grimaldo, Status: Pen, Time: 2:45 PM EPVOB, Provider: Sabiha Grimaldo, Status: Pen, Time: 2:45 PM [facility] Work Phone: Start: 09-02-2021 EPV, Provider: Bebeto Dior, Status: Pen, Time: 8:20 AM EPV, Provider: Bebeto Dior, Status: Pen, Time: 8:20 AM [facility] Work Phone: Start: 2019 Influenza vaccination INFLUENZA VACC INE (#1) [facility] Start: 2019 Influenza vaccinatio n given SEQUENTIAL INFLUENZA VACCINE (#1) [facility] Start: 08-15-2018 End: 08-15-2018 Ambulatory 08/15/2018 Lab Encounter Clinical Pathology/Laboratory Medicine Joyce Vazquez, SHOE PULLER [address] [place] [address] [phone] [facility] Laboratory Immunizations Immunization Date Immunization Notes Care Provider Fa keyur 08-28-2020 Moderna COVID-19 Vaccine 100 MCG/0.5ML Intramuscular Suspension René Bonilla Work Phone: [facility] Work Phone: Payers Date Payer Category Payer Unknown 2016 Unknown [id number] 2016 Unknown xxxxxxxxxxxx [id number] 1995 Unknown [id number] 1995 Unknown [id number] [id number] 1995 Unknown [id number] [id number] 1995 Unknown [id number] [id number]. [id number] 1995 Unknown [id number] [id number]. [id number] 1995 Unknown [id number] [id number]. [id number] Unknown [id number] Social History Date Type Detail Facility Start: 08-15-2018 End: 07-09-2019 Tobacco smoking status NHIS Current every day smoker [facility] Work Phone: Start: 08-15-2018 End: 07-09-2019 Cigarettes smoked current (pack per day) - Reported [facility] Work Phone: Clinical Note 02-03-2023 Note Date & Type Note Facility 02-03-2023 Note 18 Date of Procedure: 02/03/2023 Pathologist: [facility] Date Reported: 02/08/2023 Date Received: 02/04/2023 Submitting Physician: SABIHA GRIMALDO MD FINAL CYTOLOGICAL INTERPRETATION A. THINPREP PAP CERVICAL: Specimen Adequacy: SATISFACTORY FOR EVALUATION. Quality Indicator: Absence of endocervical/transformation zone component. General Categorization: NEGATIVE FOR INTRAEPITHELIAL LESION OR MALIGNANCY. Ancillary Testing: Specimen does not meet the requisition-stated criteria for HPV testing. See Pap test interpretation above. This specimen has been analyzed by the [employer] Imaging System ([employer] an automated imaging and review system, which assists the laboratory in evaluating cells on ThinPrep Pap tests. Following automated imaging, selected reyes from every slide were reviewed by a drier operator head and/or pathologist. Electronically Signed Out By [facility], Cytology//IK By the signature on this report, the individual or group listed as making the Final Interpretation/Diagnosis certifies that they have reviewed this case. Diagnostic interpretation performed at [facility] [place], operated by [facility] [address] [address] [id number] Educational Note: Cervical cytology is a screening [...] Source of Specimen A: THINPREP PAP CERVICAL [facility] Department of Pathology [address] [place] [address] [facility] History of Present illness Narrative 10-24-2022 Note Date & Type Note Facility 10-24-2022 History of Presen t illness Narrative Shortness and states she has been doing menstrual flow since October. She has some nausea and breast tenderness. Denies any vaginal bleeding or abdominal pain. Patient states she has a history of depression. 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 [place] [address]. All rights reserved. This information is not [...] or a fever with an unknown cause. Clod-uvh-qoxekwg medicines will not shorten the duration of [...] Feeling weak or dizzy Date Last Reviewed: 05/26/201719994232-5109 [employer]. [address] [place] [address], [place] [address]. All rights reserved. This information is not intended as a substitute for professional medical care. Always follow yourhealthcare professional's instructions. in this encounter History of Present Illness * Joyce Vazquez, SHOE PULLER - 08/15/2018 7:55 PM EST Formatting of [...] Care Everywhere. * Tooth and Gum Pain (Hungarian) documented in this encounter Chief Complaint New Patient is here due to amenorrhea. LMP: 11/11/2022. Patient c/o nausea, and breast tenderness. Patient states a couple of weeks ago she had some mild cramps. Additional Source Comments INFORMATION SOURCE (unrecogn ized section and content) DATE CREATED AUTHOR AUTHOR'S ORGANIZ ATION 07/29/2018 [facility] DATE CREATED AUTHOR AUTHOR'S ORGANIZ ATION 08/25/2018 [facility] DATE CREATED AUTHOR AUTHOR'S ORGANIZ ATION 08/27/2018 [facility] DATE CREATED AUTHOR AUTHOR'S ORGANIZ ATION 04/05/2019 [facility] DATE CREATED AUTHOR AUTHOR'S ORGANIZ ATION 07/09/2019 [facility] DATE CREATED AUTHOR AUTHOR'S ORGANIZ ATION 01/09/2023 [employer] DATE CREATED AUTHOR AUTHOR'S ORGANIZ ATION 04/06/2023 [facility] Reason for Visit (unrecogniz ed section and content) Reason Comments Results Reason Comments Dental Pain Ramirez Jay, - 07/09/2019 4:49 AM Nely Gregg RN - 07/09/2019 4:38 AM EST ED Notes (unrecognized secti on and content) ED PROVIDER NOTE [facility] EMERGENCY DEPARTMENT NAME: Jayna Jean AGE: 24 y.o. : 1995 VISIT DATE: 07/09/2019 CSN: [id number] PCP: Donal Bunch MD Chief Complaint Patient [...] file Gets together: Not on file Attends moravian service: Not on file Active member of [...] BE BASED ON THE PRIMARY CLINICAL RECORDS. [employer] provides no warranty or guarantee of the accuracy or completeness of information in this document.
[2023-08-01 21:59] VITALS: BMI 33.0
[2023-08-01 22:09] VITALS: BP 130/83; PULSE 115; PULSE 122; TEMP 36.7; O2SAT 99
[2023-08-01 22:22] VITALS: BP 132/81; PULSE 97
[2023-08-01 22:49] LABS: ROM Internal Control Test YES-OK TO RESULT pt. (Internal QC); ROM Patient Test Negative (Negative)
[2023-08-01 22:50] LABS: Record Kit Lot#, ROM+ K1374
--- NOTE | 2023-08-02 07:38 | OB.TRI.PN ---
Progress Notes Date of Service: 08/01/23 Progress Note: Patient presents for triage evaluation secondary to false labor possible ROM FHT: 140 Moderate variability reactive no decelerations category I tracing [place]: irregular not painful Contractions Assessment and plan: false labor amniotic membranes intact Reactive NST, reassuring maternal and status patient discharged to home to follow-up as scheduled. See problem list details for additional plan information. Laboratory Studies: Laboratory Tests 08/01/23 Range/Units 22:15 Vag Amniotic Fld Detect Negative (Negative) Charges/Coding Procedures Urinary/Genital 52xxx-59xxx: [id number] non-stress test Interp
== END 2023-08-01 23:00 | disposition home or self-care (01) ==
LOC: WPOUT 21:56 → WP 21:57
PROVIDERS: PCP Family Medicine; Referring Provider Advanced Practice Midwife; Visit Provider Advanced Practice Midwife
DX: O47.9 False labor, unspecified (principal); Z3A.00 Weeks of gestation of pregnancy not specified
CPT/HCPCS: 59025; 59050; 84112; 99221; G0378

== ENCOUNTER 2023-08-14 03:10 | Inpatient (IN) | payer OTHER, SELFPAY ==
[2023-08-14] VITALS (82 sets, daily range): BP systolic 99–159; BP diastolic 52–89; PULSE 67–196; RESP 14–20; TEMP 36.6–37.4; O2SAT 82–100; BMI 33.8
--- OUTSIDE RECORDS SUMMARY | 2023-08-14 00:55 | XMS RPT_ITS | CCD ---
Author Name Unknown Address [address] [place] [address] Organization [facility] Care Team Providers Care Kitchen Work Supervisor Name Role Phone DAVIE MURPHY Unavailable Unavailab [...] [SUMATRIPTAN] Drug Allergy 3 Shortness of Breath [facility] Repository (5 sources) traMADol; Translations: [TRAMADOL] Drug Allergy 7 [facility] Repository (8 sources) SUMAtriptan; Translations: [Imitrex] Drug Allergy AOF [facility] Repository Medications Current Medications Medication Drug Class(es) [...] 02-03-2023 15:18-0400 Body height 154.94 cm René [employer] Phone: [employer] Work Phone: 02-03-2023 15:18-0400 Body mass index (BMI) [Ratio] 26.16 kg/m2 Draft Phone: [employer] Work Phone: 02-03-2023 15:18-0400 Body surface area Derived from formula 1.62 m2 Draft Phone: [employer] Work Phone: 02-03-2023 15:18-0400 Body weight 62.8 kg René [employer] Phone: [employer] [place] [address] [place] Work Phone: 02-03-2023 15:18-0400 Diastolic blood pressure 66 mm[Hg] René Jose Furness Work Phone: [employer] [place] [employer] Work Phone: 02-03-2023 15:18-0400 Systolic blood pressure 124 mm[Hg] René T Furness Work Phone: [place] [address] [place] Work Phone: 01-08-2023 14:18-0400 Body height 154.94 cm René Jose Furness Work Phone: [employer] [place] [address] [place] Work Phone: 01-08-2023 14:18-0400 Body mass index (BMI) [Ratio] 26.12 kg/m2 René Jose Furness Work Phone: [place] [address] [place] Work Phone: 01-08-2023 14:18-0400 Body surface area Derived from formula 1.61 m2 René T Furness Work Phone: [employer] [place] [address] [place] Work Phone: 01-08-2023 14:18-0400 Body weight 62.7 kg René T Furness Work Phone: [place] [address] [place] Work Phone: 01-08-2023 14:18-0400 Diastolic blood pressure 64 mm[Hg] René T Furness Work Phone: [place] [address] [place] Work Phone: 01-08-2023 14:18-0400 Systolic blood pressure 122 mm[Hg] René T Furness Work Phone: [employer] [place] [address] [place] Work Phone: 07-09-2019 04:35-0500 BMI (Body Mass Index) 26.45 kg/m2 [facility] 07-09-2019 04:35-0500 Body Temperature 97.81 [degF] [facility] 07-09-2019 04:35-0500 Body weight 63.5 kg [facility] 07-09-2019 04:35-0500 BP Diastolic 72 mm[Hg] [facility] 07-09-2019 04:35-0500 BP Systolic 122 mm[Hg] [facility] 07-09-2019 04:35-0500 Height 154.9 cm [facility] 07-09-2019 04:35-0500 Pulse (Heart Rate) 114 /min [facility] 07-09-2019 04:35-0500 Pulse Oximetry 100 % [facility] 07-09-2019 04:35-0500 Respiratory Rate 18 /min [facility] 08-15-2018 20:04-0500 BMI (Body Mass Index) 29.48 kg/m2 [facility] Work Phone: 08-15-2018 20:04-0500 Body Temperature 100.6 [degF] [facility] Work Phone: 08-15-2018 20:04-0500 BP Diastolic 77 mm[Hg] [facility] Work Phone: 08-15-2018 20:04-0500 BP Systolic 128 mm[Hg] [facility] Work Phone: 08-15-2018 20:04-0500 Height 154.9 cm [facility] Work Phone: 08-15-2018 20:04-0500 Pulse (Heart Rate) 125 /min [facility] Work Phone: 08-15-2018 20:04-0500 Pulse Oximetry 98 % [facility] Work Phone: 08-15-2018 20:04-0500 Respiratory Rate 16 /min Joyce [facility] Work Phone: 08-15-2018 20:04-0500 Weight 70.76 kg Joyce [facility] Work Phone: Encounters Encounter Date Encounter Type Care Provider Facility Start: 02-09-2023 Chart Update René T Furn ess Work Phone: [facility] [address] [place] Work Phone: Start: 02-05-2023 Chart Update René T Furn ess Work Phone: [facility] [address] [place] Work Phone: Start: 02-04-2023 Chart Update René T Furn ess Work Phone: [facility] [address] [place] Work Phone: Start: 02-03-2023 Office outpatient ne w 45 minutes René T Furness Work Phone: [facility] [address] [place] Work Phone: Start: 02-03-2023 ambulatory MD SABIHA GRIMALDO Facility:[facility] Start: 01-08-2023 Office outpatient ne w 30 minutes René T Furness Work Phone: [facility] [address] [place] Work Phone: Start: 01-08-2023 ambulatory MD SABIHA GRIMALDO Facility:[id number] Start: 09-14-2022 AUDIT René T Furn ess Work Phone: [facility] Work Phone: Start: 08-26-2021 AUDIT René T Furn ess Work Phone: [facility] Work Phone: Start: 07-09-2019 End: 07-09-2019 Emergency department patient visit DONAL OSBORNE [facility] Start: 07-09-2019 End: 07-09-2019 Emergency department patient visit Ramirez Jay Work Phone: [facility] Emergency Department Procedures Date Procedure Procedure Detail [...] Sabiha Grimaldo, Status: Pen, Time: 3:45 PM [facility] Work Phone: Start: 02-03-2023 EPVOB, Provider: Sabiha Grimaldo, Status: Pen, Time: 2:45 PM EPVOB, Provider: Sabiha Grimaldo, Status: Pen, Time: 2:45 PM [facility] Work Phone: Start: 09-02-2021 EPV, Provider: Bebeto Dior, Status: Pen, Time: 8:20 AM EPV, Provider: Bebeto Dior, Status: Pen, Time: 8:20 AM [facility] Work Phone: Start: 2019 Influenza vaccination INFLUENZA VACC INE (#1) [facility] Start: 2019 Influenza vaccinatio n given SEQUENTIAL INFLUENZA VACCINE (#1) [facility] Start: 08-15-2018 End: 08-15-2018 Ambulatory 08/15/2018 Lab Encounter Clinical Pathology/Laboratory Medicine Joyce Vazquez, CARE TRAINER [address] [place] [address] [phone] [facility] Laboratory Immunizations Immunization Date Immunization Notes Care Provider Fa keyur 08-28-2020 Moderna COVID-19 Vaccine 100 MCG/0.5ML Intramuscular Suspension René Bonilla Work Phone: [facility] Work Phone: Payers Date Payer Category Payer Unknown 2016 Unknown [id number] 2016 Unknown xxxxxxxxxxxx 1. [id number] 1995 Unknown [id number] 2.16.84 [id number] 1995 Unknown [id number] 2.16.84 [id number] 1995 Unknown [id number] 2.16.8 [id number] 1995 Unknown [id number] 2.16. [id number] 1995 Unknown [id number] 2.16. [id number] 1995 Unknown [id number] 2.16. [id number] Unknown [id number] Social History Date Type Detail Facility Start: 08-15-2018 End: 07-09-2019 Tobacco smoking status NHIS Current every day smoker [facility] Work Phone: Start: 08-15-2018 End: 07-09-2019 Cigarettes smoked current (pack per day) - Reported [facility] Work Phone: Clinical Note 02-03-2023 Note Date & Type Note Facility 02-03-2023 Note 18 Date of Procedure: 02/03/2023 Pathologist: [facility], Cytology Date Reported: 02/08/2023 Date Received: 02/04/2023 Submitting Physician: SABIHA GRIMALDO MD FINAL CYTOLOGICAL INTERPRETATION A. THINPREP PAP CERVICAL: Specimen Adequacy: SATISFACTORY FOR EVALUATION. Quality Indicator: Absence of endocervical/transformation zone component. General Categorization: NEGATIVE FOR INTRAEPITHELIAL LESION OR MALIGNANCY. Ancillary Testing: Specimen does not meet the requisition-stated criteria for HPV testing. See Pap test interpretation above. This specimen has been analyzed by the [employer] Imaging System ([employer] an automated imaging and review system, which assists the laboratory in evaluating cells on ThinPrep Pap tests. Following automated imaging, selected reyes from every slide were reviewed by a director of casino and/or pathologist. Electronically Signed Out By [facility], Cytology//IK By the signature on this report, the individual or group listed as making the Final Interpretation/Diagnosis certifies that they have reviewed this case. Diagnostic interpretation performed at [facility] [address] [place] [id number] Educational Note: Cervical cytology is a screening [...] Source of Specimen A: THINPREP PAP CERVICAL [facility] Department of Pathology [address] [place] [address] [facility] History of Present illness Narrative 10-24-2022 Note Date & Type Note Facility 10-24-2022 History of Presen t illness Narrative Shortness and states she has been doing menstrual flow since October. She has some nausea and breast tenderness. Denies any vaginal bleeding or abdominal pain. Patient states she has a history of depression. 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 [address] [place] [address]. All rights reserved. This information is not [...] or a fever with an unknown cause. Nsdk-ciw-mqbzccu medicines will not shorten the duration of [...] Feeling weak or dizzy Date Last Reviewed: 05/26/201719992521-8860 [employer]. [address] [place] [address], [place] [address]. All rights reserved. This information is not intended as a substitute for professional medical care. Always follow yourhealthcare professional's instructions. in this encounter History of Present Illness * Joyce Vazquez, CARE TRAINER - 08/15/2018 7:55 PM EST Formatting of [...] Care Everywhere. * Tooth and Gum Pain ([place]) documented in this encounter Chief Complaint New Patient is here due to amenorrhea. LMP: 11/11/2022. Patient c/o nausea, and breast tenderness. Patient states a couple of weeks ago she had some mild cramps. Additional Source Comments INFORMATION SOURCE (unrecogn ized section and content) DATE CREATED AUTHOR AUTHOR'S ORGANIZ ATION 07/29/2018 [facility] DATE CREATED AUTHOR AUTHOR'S ORGANIZ ATION 08/25/2018 [facility] DATE CREATED AUTHOR AUTHOR'S ORGANIZ ATION 08/27/2018 [facility] DATE CREATED AUTHOR AUTHOR'S ORGANIZ ATION 04/05/2019 [facility] DATE CREATED AUTHOR AUTHOR'S ORGANIZ ATION 07/09/2019 [facility] DATE CREATED AUTHOR AUTHOR'S ORGANIZ ATION 01/09/2023 [employer] DATE CREATED AUTHOR AUTHOR'S ORGANIZ ATION 04/06/2023 [facility] Reason for Visit (unrecogniz ed section and content) Reason Comments Results Reason Comments Dental Pain Ramirez Jay, - 07/09/2019 4:49 AM Nely Gregg RN - 07/09/2019 4:38 AM EST ED Notes (unrecognized secti on and content) ED PROVIDER NOTE [facility] EMERGENCY DEPARTMENT NAME: Jayna Jean AGE: 24 y.o. : 1995 VISIT DATE: 07/09/2019 CSN: [id number] PCP: Donal Bunch MD Chief Complaint Patient [...] file Gets together: Not on file Attends anabaptist service: Not on file Active member of [...] BE BASED ON THE PRIMARY CLINICAL RECORDS. [employer] provides no warranty or guarantee of the accuracy or completeness of information in this document.
--- OUTSIDE RECORDS SUMMARY | 2023-08-14 03:13 | XMS RPT_ITS | CCD ---
Author Name Unknown Address [address] [place] [address] Organization [facility] Care Team Providers Care Well Site Drilling Engineer Name Role Phone DAVIE MURPHY Unavailable Unavailab DONAL Mathews SR Unavailable Unavail able Stencel, Bebeto Unavailable Unavailable Stencel, Bebeot Unavailable Unavailable Wood, Gwen L Unavailable Unavailable [...] [SUMATRIPTAN] Drug Allergy 3 Shortness of Breath [facility] Repository (5 sources) traMADol; Translations: [TRAMADOL] Drug Allergy 7 [facility] Repository (8 sources) SUMAtriptan; Translations: [Imitrex] Drug Allergy AOF [facility] Repository Medications Current Medications Medication Drug Class(es) [...] 02-03-2023 15:18-0400 Body height 154.94 cm René Chatous Phone: [employer] Work Phone: 02-03-2023 15:18-0400 Body mass index (BMI) [Ratio] 26.16 kg/m2 [employer] Phone: [employer] Work Phone: 02-03-2023 15:18-0400 Body surface area Derived from formula 1.62 m2 [employer] Phone: [employer] Work Phone: 02-03-2023 15:18-0400 Body weight 62.8 kg René Chatous Phone: [place] [address] [place] Work Phone: 02-03-2023 15:18-0400 Diastolic blood pressure 66 mm[Hg] René Jose Furness Work Phone: [employer] [place] Work Phone: 02-03-2023 15:18-0400 Systolic blood pressure 124 mm[Hg] René T Furness Work Phone: [place] [address] [place] Work Phone: 01-08-2023 14:18-0400 Body height 154.94 cm René Jose Furness Work Phone: [place] [place] [address] [place] Work Phone: 01-08-2023 14:18-0400 Body mass index (BMI) [Ratio] 26.12 kg/m2 René Jose Furness Work Phone: [place] [address] [place] Work Phone: 01-08-2023 14:18-0400 Body surface area Derived from formula 1.61 m2 René T Furness Work Phone: [employer] [place] [address] [place] Work Phone: 01-08-2023 14:18-0400 Body weight 62.7 kg René T Furness Work Phone: [place] [address] [place] Work Phone: 01-08-2023 14:18-0400 Diastolic blood pressure 64 mm[Hg] René T Furness Work Phone: [place] [address] [place] Work Phone: 01-08-2023 14:18-0400 Systolic blood pressure 122 mm[Hg] René T Furness Work Phone: [place] [place] [address] [place] Work Phone: 07-09-2019 04:35-0500 BMI (Body Mass Index) 26.45 kg/m2 [facility] 07-09-2019 04:35-0500 Body Temperature 97.81 [degF] [facility] 07-09-2019 04:35-0500 Body weight 63.5 kg [facility] 07-09-2019 04:35-0500 BP Diastolic 72 mm[Hg] [facility] 07-09-2019 04:35-0500 BP Systolic 122 mm[Hg] [facility] 07-09-2019 04:35-0500 Height 154.9 cm [facility] 07-09-2019 04:35-0500 Pulse (Heart Rate) 114 /min [facility] 07-09-2019 04:35-0500 Pulse Oximetry 100 % [facility] 07-09-2019 04:35-0500 Respiratory Rate 18 /min [facility] 08-15-2018 20:04-0500 BMI (Body Mass Index) 29.48 kg/m2 [facility] Work Phone: 08-15-2018 20:04-0500 Body Temperature 100.6 [degF] [facility] Work Phone: 08-15-2018 20:04-0500 BP Diastolic 77 mm[Hg] [facility] Work Phone: 08-15-2018 20:04-0500 BP Systolic 128 mm[Hg] [facility] Work Phone: 08-15-2018 20:04-0500 Height 154.9 cm [facility] Work Phone: 08-15-2018 20:04-0500 Pulse (Heart Rate) 125 /min [facility] Work Phone: 08-15-2018 20:04-0500 Pulse Oximetry 98 % [facility] Work Phone: 08-15-2018 20:04-0500 Respiratory Rate 16 /min [facility] Work Phone: 08-15-2018 20:04-0500 Weight 70.76 kg Joyce [facility] Work Phone: Encounters Encounter Date Encounter Type Care Provider Facility Start: 02-09-2023 Chart Update René T Furn ess Work Phone: [facility] [address] [place] Work Phone: Start: 02-05-2023 Chart Update René T Furn ess Work Phone: [facility] [place] Work Phone: Start: 02-04-2023 Chart Update René T Furn ess Work Phone: [facility] [place] Work Phone: Start: 02-03-2023 Office outpatient ne w 45 minutes René T Furness Work Phone: [facility] [place] Work Phone: Start: 02-03-2023 ambulatory MD SABIHA GRIMALDO Facility:[facility] Start: 01-08-2023 Office outpatient ne w 30 minutes René T Furness Work Phone: [facility] [place] Work Phone: Start: 01-08-2023 ambulatory MD SABIHA GRIMALDO Facility:[id number] Start: 09-14-2022 AUDIT René T Furn ess Work Phone: [facility] Work Phone: Start: 08-26-2021 AUDIT René T Furn ess Work Phone: [facility] Work Phone: Start: 07-09-2019 End: 07-09-2019 Emergency department patient visit DONAL OSBORNE [facility] Start: 07-09-2019 End: 07-09-2019 Emergency department patient visit Ramirez Jay Work Phone: [facility] Procedures Date Procedure Procedure [...] Sabiha Grimaldo, Status: Pen, Time: 3:45 PM [facility] [employer] Work Phone: Start: 02-03-2023 EPVOB, Provider: Sabiha Grimaldo, Status: Pen, Time: 2:45 PM EPVOB, Provider: Sabiha Grimaldo, Status: Pen, Time: 2:45 PM [facility] [employer] Work Phone: Start: 09-02-2021 EPV, Provider: Bebeto Dior, Status: Pen, Time: 8:20 AM EPV, Provider: Bebeto Dior, Status: Pen, Time: 8:20 AM [facility] Work Phone: Start: 2019 Influenza vaccination INFLUENZA VACC INE (#1) [facility] Start: 2019 Influenza vaccinatio n given SEQUENTIAL INFLUENZA VACCINE (#1) [facility] Start: 08-15-2018 End: 08-15-2018 Ambulatory 08/15/2018 Lab Encounter Clinical Pathology/Laboratory Medicine Joyce Vazquez, CAMP MANAGER [address] [place] [address] [phone] [facility] Laboratory Immunizations Immunization Date Immunization Notes Care Provider Fa keyur 08-28-2020 Moderna COVID-19 Vaccine 100 MCG/0.5ML Intramuscular Suspension René Bonilla Work Phone: [facility] Work Phone: Payers Date Payer Category Payer Unknown 2016 Unknown [id number] 2016 Unknown xxxxxxxxxxxx 1. [id number] 1995 Unknown [id number] 2.16.84 [id number] 1995 Unknown [id number] 2.16.84 [id number] 1995 Unknown [id number] 2.16.8 [id number] 1995 Unknown [id number] 2.16. [id number] 1995 Unknown [id number] 2.16. [id number] 1995 Unknown [id number] 2.16. [id number] Unknown [id number] Social History Date Type Detail Facility Start: 08-15-2018 End: 07-09-2019 Tobacco smoking status NHIS Current every day smoker [facility] Work Phone: Start: 08-15-2018 End: 07-09-2019 Cigarettes smoked current (pack per day) - Reported [facility] Work Phone: Clinical Note 02-03-2023 Note Date & Type Note Facility 02-03-2023 Note 18 Date of Procedure: 02/03/2023 Pathologist: [facility], Cytology Date Reported: 02/08/2023 Date Received: [...] This specimen has been analyzed by the [employer] Imaging System ([employer]), an automated imaging and review system, which assists the laboratory in evaluating cells on ThinPrep Pap tests. Following automated imaging, selected reyes from every slide were reviewed by a marketing specialist and/or pathologist. Electronically Signed Out By [facility], Cytology//IK By the signature on this report, the individual or group listed as making the Final Interpretation/Diagnosis certifies that they have reviewed this case. Diagnostic interpretation performed at [facility] [address] [address] [place] [id number] Educational Note: Cervical cytology is a screening [...] Source of Specimen A: THINPREP PAP CERVICAL [facility] Department of Pathology [address] [place] [address] [facility] History of Present illness Narrative 10-24-2022 Note Date & Type Note Facility 10-24-2022 History of Presen t illness Narrative Shortness and states she has been doing menstrual flow since October. She has some nausea and breast tenderness. Denies any vaginal bleeding or abdominal pain. Patient states she has a history of depression. 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 [address] [place] [address]. All rights reserved. This information is not [...] or a fever with an unknown cause. Fryg-tcm-gpapvec medicines will not shorten the duration of [...] Feeling weak or dizzy Date Last Reviewed: 05/26/201719999731-2553 [employer]. [address] [place] [address], [place] [address]. All rights reserved. This information is not intended as a substitute for professional medical care. Always follow yourhealthcare professional's instructions. in this encounter History of Present Illness * Joyce Vazquez, CAMP MANAGER - 08/15/2018 7:55 PM EST Formatting of [...] Care Everywhere. * Tooth and Gum Pain ([place]) documented in this encounter Chief Complaint New Patient is here due to amenorrhea. LMP: 11/11/2022. Patient c/o nausea, and breast tenderness. Patient states a couple of weeks ago she had some mild cramps. Additional Source Comments INFORMATION SOURCE (unrecogn ized section and content) DATE CREATED AUTHOR AUTHOR'S ORGANIZ ATION 07/29/2018 [facility] DATE CREATED AUTHOR AUTHOR'S ORGANIZ ATION 08/25/2018 [facility] DATE CREATED AUTHOR AUTHOR'S ORGANIZ ATION 08/27/2018 [facility] DATE CREATED AUTHOR AUTHOR'S ORGANIZ ATION 04/05/2019 [facility] DATE CREATED AUTHOR AUTHOR'S ORGANIZ ATION 07/09/2019 [facility] DATE CREATED AUTHOR AUTHOR'S ORGANIZ ATION 01/09/2023 [employer] DATE CREATED AUTHOR AUTHOR'S ORGANIZ ATION 04/06/2023 [facility] Reason for Visit (unrecogniz ed section and content) Reason Comments Results Reason Comments Dental Pain Ramirez Jay, - 07/09/2019 4:49 AM Nely Gregg RN - 07/09/2019 4:38 AM EST ED Notes (unrecognized secti on and content) ED PROVIDER NOTE [facility] EMERGENCY DEPARTMENT NAME: Jayna Jean AGE: 24 y.o. : 1995 VISIT DATE: 07/09/2019 CSN: [id number] PCP: Donal Bunch MD Chief Complaint Patient [...] file Gets together: Not on file Attends congregation service: Not on file Active member of [...] BE BASED ON THE PRIMARY CLINICAL RECORDS. [employer] provides no warranty or guarantee of the accuracy or completeness of information in this document.
[2023-08-14] MEDS: Lactated Ringers 1,000 ML 200 ML IV ×2 (03:20→07:02)
[2023-08-14] MEDS: LACTATED RINGERS 500 ML 999 ML IV ×3 (03:20→11:34)
[2023-08-14 03:33] LABS: Absolute Lymphocyte Count 1.95 X10^3/uL (0.83-4.51); Absolute Neutrophil Count 14.5 X10^3/uL (2.0-7.7); Basophil# 0.07 X10^3/uL; Basophil% 0.4 % (0-1); Eosinophil# 0.14 X10^3/uL; Eosinophils% 0.8 % (0-5); Hematocrit 36.7 % (37-47); Lymphocyte # 1.95 X10^3/ul (0.83-4.51); Lymphocyte % 10.8 % (19-41); Mean Corp Hgb Conc 32.7 g/dL (32-36); Mean Corpuscular Hgb 29.3 pg (27.0-32.0); Mean Corpuscular Volume 89.5 fL (81-99); Mean Platelet Vol. 10.2 fl (6.2-12.0); Monocyte# 1.29 X10^3/uL; Monocyte% 7.1 % (0-10); NRBC Flagged by Analyzer 0 % (0-5); Neutrophil # 14.54 X10^3/uL (2.7-7.7); Neutrophil % 80.3 % (47-70); Platelet Count 389 K/mm3 (150-450); RBC Distribution Width CV 14.4 % (11.6-14.6); RBC Distribution Width SD 46.7 fl (35.1-43.9); White Blood Count 18.1 K/mm3 (4.4-11.0)
--- NOTE | 2023-08-14 03:33 | HP.PCM.OB_ITS ---
HPI - General General Date of Admission: 08/14/23 HPI Narrative GEORGIE STAPLETON, is a 28 F who presents IAL 6 cm dilated regular ctx now 6 cm dilated with a bulging bag. Maternal Data Information COMFORT Calculator Estimated Delivery Date Method Current WG Current Estimate 08/18/23 LMP (Certain) 39w 3d Other Estimates 08/21/23 Ultrasound #1 39w 0d PFSH PFSH Medical History (Updated 08/14/23 @ 03:30 by Ely Mcdermott) Anxiety Depression Home Medications sertraline 50 mg tablet 50 mg PO DAILY 02/19/23 [History Last Taken Unknown] sertraline 50 mg tablet 75 mg (1.5 x 50 mg) PO DAILY 30 days #45 tabs 06/09/23 [Rx Last Taken 08/13/23 22:30] ferrous sulfate 325 mg (65 mg iron) tablet (Iron (ferrous sulfate)) 325 mg PO DAILY 08/14/23 [History Last Taken 08/13/23 22:30] vit no.95-ferrous fumarate 28 mg-folic acid 800 mcg tablet () 1 tab PO DAILY 08/14/23 [History Last Taken 08/13/23 22:30] Allergy/AdvReac Type Severity Reaction Status Date / Time No Known Allergies Allergy Verified 08/14/23 00:57 Surgical History no surgical history Social History household members: spouse housing: house number of children: 0 Smoking Status: Current every day smoker substance use type: does not use seatbelt use: always do you feel safe at home: Yes additional social history: - Gautam History 1 Elective abortions Hx Para 0 Spontaneous abortions Hx # Term Pregnancies Ectopic pregnancies Hx # Pregnancies Multiple births # of living children Visit Details Expected Delivery Route/Plan Labor Preferences- CB/BF classes: encouraged labor support person: Gautam labor intervention preferences: [] pain management options preferred: epidural cut cord/dad catch: cord : undecided PP control planned: discussed. Wants tubal discussed possible routes of delivery and associated risks: [] special requests: [] Plans Covid status: declines Flu vaccine: declines Tdap vaccine: give 07/09 Rhogam: NA LARC form signed: yes movement and labor precautions reviewed. Problem list reviewed and updated with the most current plan of care details and appropriate orders placed. Relevant counseling for the gestational age provided. Continue routine care and follow up unless otherwise noted in visit notes/problem list details OB Flowsheet Initial Weight: 138 lb Date -?-?-?-?-?-?-?-?-?-?-?-?- EGA Weight BP Urine Prot -?-?-?-?-?-?-?-?-?-?-?-?- Glucose FHR FuHt Pres Dilation -?-?-?-?-?-?-?-?-?-?-?-?- Effaced St Visit Note 02/19/23 -?-?-?-?-?-?-?-?-?-?-?-?- 14w 2d 138 lb 4 oz (+4 oz) 118/73 -?-?-?-?-?-?-?-?-?-?-?-?- 160 -?-?-?-?-?-?-?-?-?-?-?-?- LC- transfer of care. oriented to practice. discussed genetics. considering. contacting insurance for MFM anatomy scan. discussed and declines afp. LC- transfer of care. orient ed to practice. discussed genetics. considering. contacting insurance for MFM anatomy scan. discussed and declines afp. NOB labs ordered as has not obtained yet.pap, gc/ct and urine cx done at previous practice. 03/17/23 -?-?-?-?-?-?-?-?-?-?-?-?- 18w 0d 143 lb 6 oz (+5 lb 6 oz) 122/74 Negative -?-?-?-?-?-?-?-?-?-?-?-?- Negative 156 -?-?-?-?-?-?-?-?-?-?-?-?- MH-No VB, crampi ng. Still some nausea, fatigue. Declines Rx. Reassured. 04/16/23 -?-?-?-?-?-?-?-?-?-?-?-?- 22w 2d 149 lb 6 oz (+11 lb 6 oz) 128/72 Negative -?-?-?-?-?-?-?-?-?-?-?-?- Negative 155 23 -?-?-?-?-?-?-?-?-?-?-?-?- kw-no vb/ctx. go od fm. anatomy us reviewed. 28 week labs discussed. kw-no vb/ctx. good fm. anato my us reviewed. 28 week labs discussed. A+ blood type 05/12/23 -?-?-?-?-?-?-?-?-?-?-?-?- 26w 0d 156 lb 6.4 oz (+18 lb 6.4 oz) 134/80 Negative -?-?-?-?-?-?-?-?-?-?-?-?- Negative 154 26 -?-?-?-?-?-?-?-?-?-?-?-?- MH-No Vb, LOF. G ood FM. Will RTO 2 wk and do 28 wk labs 05/27/23 -?-?-?-?-?-?-?-?-?-?-?-?- 28w 1d 159 lb 8 oz (+21 lb 8 oz) 121/78 -?-?-?-?-?-?-?-?-?-?-?-?- 151 28 -?-?-?-?-?-?-?-?-?-?-?-?- KW- no vb/lof/ct x. good fm. KW- no vb/lof/ctx. good fm. labs reviewed. 3 hour GCT ordered. HGB 10.0-oral iron encouraged 06/09/23 -?-?-?-?-?-?-?-?-?-?-?-?- 30w 0d 160 lb (+22 lb) 123/76 Negative -?-?-?-?-?-?-?-?-?-?-?-?- Negative 160 30 -?-?-?-?-?-?-?-?-?-?-?-?- JV- meeting adal ent for first time and explained dynamics of practice. has lots of questions about who will deliver her. no lof vaginal bleeding,or dec fm. 06/25/23 -?-?-?-?-?-?-?-?-?-?-?-?- 32w 2d 167 lb 4 oz (+29 lb 4 oz) 108/74 Negative -?-?-?-?-?-?-?-?-?-?-?-?- Negative 138 32 -?-?-?-?-?-?-?-?-?-?-?-?- LC- no vb/ctx/lo f. good fm. no concerns. cbc ordered for follow up. 07/09/23 -?-?-?-?-?-?-?-?-?-?-?-?- 34w 2d 169 lb (+31 lb) 100/70 -?-?-?-?-?-?-?--?-?-?-?-?- 140 34 Cephalic -?-?-?-?-?-?-?-?-?-?-?-?- SM- no vb lof go od fm no regular ctx patient and have desired sterilization for a while, discussed options, PPTL or laparoscopic interval it able, tubal at time of csection if done. 07/23/23 -?-?-?-?-?-?-?-?-?-?-?-?- 36w 2d 172 lb 6 oz (+34 lb 6 oz) 114/76 Negative -?-?-?-?-?-?-?-?-?-?-?-?- Negative 140 36 Cephalic 0 .5 -?-?-?-?-?-?-?-?-?-?-?-?- SM- no vb lof go od fm no regular ctx gbs done 07/27/23 -?-?-?-?-?-?-?-?-?-?-?-?- 36w 6d 174 lb (+36 lb) 118/82 Negative -?-?-?-?-?-?-?-?-?-?-?-?- Negative 145 36 Cephalic -?-?-?-?-?-?-?-?-?-?-?-?- kw- no vb/lof/ct x. good fm. GBS neg. deferred SVE today 08/06/23 -?-?-?-?-?-?-?-?-?-?-?-?- 38w 2d 176 lb (+38 lb) 113/80 -?-?-?-?-?-?-?-?-?-?-?-?- 140 38 Cephalic 0.5 -?-?-?-?-?-?-?-?-?-?-?-?- JV- no lof, vagi nal bleeding, or dec fm. labor precautions discussed. 08/13/23 -?-?-?-?-?-?-?-?-?-?-?-?- 39w 2d 180 lb (+42 lb) 112/82 -?-?-?-?-?-?-?-?-?-?-?-?- 140 39 Cephalic 1.5 -?-?-?-?-?-?-?-?-?-?-?-?- 60 -2 SM- no vb lof good fm irregularctx NST FHR Rate Baby A Baseline: 140 Variability:: Moderate Accelerations:: 15 x 15 Decelerations:: None NST Reactive:: Yes FHR Category:: Category I Uterine Activity:: q3-5 ROS Constitutional Constitutional: Reports systems reviewed and no addt'l complaints, except as documented ENT HEENT: Reports systems reviewed and no addt'l complaints, except as documented Cardiovascular Cardiovascular: Reports systems reviewed and no addt'l complaints, except as documented Respiratory/Chest Respiratory/Chest: Reports systems reviewed and no addt'l complaints, except as documented Gastrointestinal Gastrointestinal: Reports systems reviewed and no addt'l complaints, except as documented and nausea; Denies abdominal pain Genitourinary Genitourinary: Reports systems reviewed and no addt'l complaints, except as documented, contractions Details: present and frequency (regular ) and movement Details: present Musculoskeletal Musculoskeletal: Reports systems reviewed and no addt'l complaints, except as documented Integumentary Integumentary: Reports as per HPI Neurologic Neurologic: Reports systems reviewed and no addt'l complaints, except as documented Endocrine Endocrinology: Reports systems reviewed and no addt'l complaints, except as documented Vital Signs Vital Signs Vital Signs: 08/14/23 01:02 08/14/23 01:02 08/14/23 01:02 Temperature Temperature Source Temporal Pulse Rate 100 Blood Pressure 138/87 H BP Systolic 138 BP Diastolic 87 Pulse Ox 08/14/23 01:02 08/14/23 03:12 08/14/23 03:12 Temperature 99.3 F H Temperature Source Pulse Rate 87 Blood Pressure BP Systolic BP Diastolic Pulse Ox 100 Weight Weight: 179 lb 0.246 oz Body Mass Index (BMI) 33.8 Physical Exam Const alert, oriented x3 and healthy appearing Constitutional Narrative: uncomfortable with contractions HEENT normocephalic and moist oral mucous membranes Head and Scalp: atraumatic Neck full ROM, no lymphadenopathy, supple and thyroid normal General: trachea midline Thyroid: thyroid normal Lymph Lymphatic: no lymphadenopathy noted Chest inspection of chest normal Resp normal respiratory effort Cardio regular rate GI normal to inspection, nondistended, normoactive bowel sounds, soft to palpation and non-tender Inspection: gravid external exam normal Bimanual Exam - Vag & Uterus: uterus non-tender Manual OB Exam: estimated gestational size appropriate, presentation cephalic, dilated, effaced and station Extremity normal to inspection General Extremity: Negative for edema Skin no rashes or lesions noted Neuro deep tendon reflexes 2+ bilaterally Motor Exam: strength 5/5 throughout and clonus absent Psych mental status grossly normal Labs Labs Labs: Blood Type Pending Antibody Screen NEGATIVE Hct 36.7 % (37-47) L Hgb 12.0 g/dL (12.0-15.0) Pap Smear Negative Obstetrics Ultrasound Syphilis Total Ab Non-reactive Rubella IgG Antibody Reactive (Nonreactive) Hep Bs Antigen Non-Reactive (Nonreactive) Hepatitis C Antibody Non-Reactive (Nonreactive) HIV 1&2 Antibody Non-Reactive (Nonreactive) Glucose 1 Hr 50 gm 152 mg/dL (70-140) H Assessment & Plan (1) Sterilization: COMMENT: patient and have desired sterilization for a while, discussed options, PPTL or laparoscopic interval it able, tubal at time of csection if done. (2) Anemia affecting : COMMENT: oral iron- repeat CBC at 36 weeks (3) Abnormal glucose affecting : COMMENT: 3 hour glucose normal (4) Tobacco smoking affecting : COMMENT: 1/2 ppd. Counseled (5) Supervision of high-risk : QUALIFIERS: Trimester: second trimester Qualified Code(s): O09.92 - Supervision of high risk , unspecified, second trimester COMMENT: [id number] COMFORT 08/18/2023 karen Chung spouse: gautam (6) : QUALIFIERS: Weeks of gestation: 39 weeks Qualified Code(s): Z3A.39 - 39 weeks gestation of COMMENT: GBS neg, genetic, ntd, and carrier screening reviewed, anatomy nl (7) Depression: QUALIFIERS: Depression Type: unspecified Qualified Code(s): F32.A - Depression, unspecified COMMENT: sertraline 50mg daily started counseling 02/2023; declines need for increase in med currently PLAN: Plan Patient presents IAL, plan expectant management for , pitocin/AROM PRN if needed. Pain management: plans epidural. GBS neg. Management of any complications: none I have reviewed the [facility] and made any clinically relevant updates.
[2023-08-14] MEDS: fentaNYL-bupivacaine (epidural) 100 ML BAG EPIDURAL ×3 (04:30→12:28)
[2023-08-14 05:09] LABS: Syphilis Antibodies Non-reactive
[2023-08-14] MEDS: Ondansetron 4 MG/2 ML Vial IV (05:16)
[2023-08-14] MEDS: Amnioinfusion- 0.9% NS 1,000 ML IV.SOLN. 300 ML INTRA-UTER (08:26)
[2023-08-14] MEDS: Oxytocin 15 Units/NS 250ml 15 UNITS/250 ML IV.SOLN 2 UNITS IV (09:56)
--- NOTE | 2023-08-14 11:32 | PCM.PN.BLA ---
Progress Note now 9 cm made change current tracing: FHT: 140 Moderate variability reactive isolate prolonged deceleration category II tracing [place]: q 2-3 Contractions reviewed tracing abnormalities since last note: prolonged decl, good recovery and now 9 cm, pitocin off immediately after and then good recovery with cat I tracing after, pit restarted A/P: continue exp mangmenet, position change IVf bolus
--- NOTE | 2023-08-14 13:23 | EX.PCM.OBRPT ---
Assessment & Plan (1) Sterilization: COMMENT: patient and have desired sterilization for a while, discussed options, PPTL or laparoscopic interval it able, tubal at time of csection if done. (2) Anemia affecting : COMMENT: oral iron- repeat CBC at 36 weeks (3) Abnormal glucose affecting : COMMENT: 3 hour glucose normal (4) Tobacco smoking affecting : COMMENT: 1/2 ppd. Counseled (5) Supervision of high-risk : QUALIFIERS: Trimester: second trimester Qualified Code(s): O09.92 - Supervision of high risk , unspecified, second trimester COMMENT: [id number] COMFORT 08/18/2023 girl Juliet spouse: isaak (6) : QUALIFIERS: Weeks of gestation: 39 weeks Qualified Code(s): Z3A.39 - 39 weeks gestation of COMMENT: GBS neg, genetic, ntd, and carrier screening reviewed, anatomy nl (7) Depression: QUALIFIERS: Depression Type: unspecified Qualified Code(s): F32.A - Depression, unspecified COMMENT: sertraline 50mg daily started counseling 02/2023; declines need for increase in med currently (8) Vaginal delivery: COMMENT: SM IAL 39 girl Juliet Maternal Data Information COMFORT Calculator Estimated Delivery Date Method Current WG Current Estimate 08/18/23 LMP (Certain) 39w 3d Other Estimates 08/21/23 Ultrasound #1 39w 0d Vaginal Delivery Operative Information Date of Procedure: 08/14/23 Pre-Operative Diagnosis: see a/p diagnoses Post-Operative Diagnosis: same Surgery / Procedure Performed: Spontaneous Vaginal Delivery Type of Anesthesia: Epidural Special Medications: none Estimated Blood Loss: 200 Fluids Replaced: crystalloid Findings Description of Procedure: Patient began pushing and delivered the head in the MELISSA presentation. The head was delivered atraumatically . The anterior and posterior shoulders delivered without complication followed by the rest of the infant and the was placed on the maternal abdomen. Delayed cord clamping was employed for approximately 60 seconds. Cord was clamped and cut and gentle traction was applied to the cord and the placenta delivered spontaneously immediately following it was noted to be intact with three-vessel cord. The perineum and vagina were inspected and noted to have a second degree perineal laceration which was repaired in the usual fashion with 3-0 vicryl rapide, lidocaine used for inadequate epidural. EBL was 200 cc. Patient and tolerated delivery well. Amniotic Fluid Description: Clear Placental Delivery Description: Spontaneous Placenta Disposition: [facility] Cord Vessel Description: 3 Vessels Cord Entanglement: None Delayed Cord Clamping: Yes Post Vaginal Delivery Medications Given After Delivery: IV Pitocin Episiotomy Description: None Complication Complications: None Procedures Urinary/Genital [id number]: [id number] Vaginal Delivery [facility]
--- NOTE | 2023-08-14 13:31 | DCINST_ITS ---
Discharge Instructions Diet Discharge Diet: No restrictions Activity Discharge Activity: Return to Normal Activity, May Not Drive (while taking narcotic pain medications.) and May Shower May resume sexual activity in: 4-6 weeks Dressing / Incision Call your doctor if your incision/area has: Continuous Slow Oozing, Sudden Increased Bleeding, Increased Pain/ Swelling, Increased Redness and Foul Smelling Discharge Follow Up Care Please Follow Up With: Meagan Ervin MD When: Call [phone] to make an appointment with your doctor in 6 weeks. If you had elevated blood pressure or 4th degree laceration, you will need to be seen in 2 weeks. Test Results: Test results from this visit will be discussed in further detail at your follow- up appointment, if applicable. Discharge Plan Admission Admit Date/Time: 08/14/23 03:10 Attending Provider: Meagan Ervin Primary Care Provider: Bebeto Dior Discharge Orders/Prescriptions Prescriptions: No Action sertraline 50 mg tablet 50 mg PO DAILY sertraline 50 mg tablet 75 mg PO DAILY 30 Days Qty: 45 12RF ferrous sulfate [Iron (ferrous sulfate)] 325 mg (65 mg iron) tablet 325 mg PO DAILY PNV cmb#95-ferrous fumarate-FA [] 28 mg iron- 800 mcg tablet 1 tab PO DAILY Referrals / Follow Up: Bebeto Dior MD [Primary Care Provider] - Disposition Disposition (needs filled in before D/C Order can be placed): Home, Self Care
[2023-08-14] MEDS: Oxytocin 15 Units/NS 250ml 15 UNITS/250 ML IV.SOLN 83 UNITS IV (13:48)
[2023-08-14] MEDS: Lidocaine 1% (20 ml mdv) 20 ML Vial INFILT (13:57)
[2023-08-14] MEDS: Naproxen 500 MG Tablet PO ×2 (14:21→22:21)
[2023-08-14] MEDS: Benzocaine/Lanolin/Aloe Vera 1 SPRAY EACH TOPICAL (18:02)
[2023-08-14] MEDS: Acetaminophen 500 MG Tablet 1000 MG PO (18:02)
[2023-08-14] MEDS: Sertraline 50 MG Tablet 75 MG PO (22:22)
[2023-08-15] MEDS: Acetaminophen 500 MG Tablet 1000 MG PO ×3 (00:16→13:26)
[2023-08-15 00:17] VITALS: BP 108/61; PULSE 87; PULSE 92; RESP 18; TEMP 36.8; O2SAT 97; O2SAT 98
[2023-08-15 04:20] VITALS: BP 97/56; PULSE 80; RESP 16; TEMP 36.8; O2SAT 98
[2023-08-15] MEDS: Naproxen 500 MG Tablet PO (06:23)
[2023-08-15 08:00] VITALS: BP 114/73; PULSE 84; RESP 16; TEMP 36.3; O2SAT 98
[2023-08-15 08:31] VITALS: BP 114/73; PULSE 82; O2SAT 99
[2023-08-15] MEDS: Senna/Docusate Sodium 1 Tablet PO (08:41)
--- NOTE | 2023-08-15 10:32 | PCM.PN.OB ---
Subjective Subjective Patient doing well without complaints. Tolerating PO. Ambulating and voiding without difficulty. feeding well. Denies chest pain, shortness of breath, calf pain/swelling, fevers, chills, lightheadedness. Objective Data Objective Data Vital Signs: Vital Signs Temp Pulse Resp BP Pulse Ox O2 Del Method 97.3 F L 82 16 114/73 99 Room Air 08/15/23 08:00 08/15/23 08:31 08/15/23 08:00 08/15/23 08:31 08/15/23 08:31 08/15/23 08:00 Oxygen Delivery Method Room Air Weight: 179 lb 0.246 oz Body Mass Index (BMI) 33.8 Intake & Output: Intake and Output for Last 24 Hours 08/13/23 08/14/23 08/15/23 23:59 23:59 23:59 Intake Total 4040.00 / 4040.00 Output Total 1350 / 1350 Balance 2690.00 / 2690.00 Lab / Micro Data 08/14/23 03:20 ROS Constitutional Constitutional: Reports systems reviewed and no addt'l complaints, except as documented Cardiovascular Cardiovascular: Reports systems reviewed and no addt'l complaints, except as documented Respiratory/Chest Respiratory/Chest: Reports systems reviewed and no addt'l complaints, except as documented Gastrointestinal Gastrointestinal: Reports systems reviewed and no addt'l complaints, except as documented Physical Exam Const alert, oriented x3 and no apparent distress HEENT Head and Scalp: atraumatic Resp normal respiratory effort GI soft to palpation and non-tender Bimanual Exam - Vag & Uterus: uterus non-tender Uterus Palpation: uterus fundus firm (below Umbilicus) Assessment & Plan (1) Vaginal delivery: COMMENT: IAL 39 girl Juliet (2) Sterilization: COMMENT: patient and have desired sterilization for a while, discussed options, PPTL or laparoscopic interval it able, tubal at time of csection if done. (3) Depression: QUALIFIERS: Depression Type: unspecified Qualified Code(s): F32.A - Depression, unspecified COMMENT: sertraline 50mg daily started counseling 02/2023; declines need for increase in med currently PLAN: Plan s/p PPD # 1 1. routine post delivery care 2. breast feeding- support given 3. rh positive 4. rubella immune
[2023-08-15 13:29] VITALS: BP 121/59; PULSE 78; RESP 16; TEMP 36.7; O2SAT 98
[2023-08-15 13:32] VITALS: BP 121/59; PULSE 82
== END 2023-08-15 17:10 | disposition home or self-care (01) | DRG 807 ==
LOC: WPOUT 03:11 → WP 03:11
PROVIDERS: Admitting Provider Obstetrics & Gynecology; PCP Family Medicine; Referring Provider Obstetrics & Gynecology; Visit Provider Obstetrics & Gynecology
DX: O76 Abnormality in fetal heart rate and rhythm complicating labor and delivery (principal); Z37.0 Single live birth; O99.344 Other mental disorders complicating childbirth; F17.200 Nicotine dependence, unspecified, uncomplicated; F32.A Depression, unspecified; O99.02 Anemia complicating childbirth; O70.1 Second degree perineal laceration during delivery; O99.334 Smoking (tobacco) complicating childbirth; Z3A.39 39 weeks gestation of pregnancy; Z79.899 Other long term (current) drug therapy
CPT/HCPCS: 59025; 59050; 76815; 85025; 86780; 86850; 86900; 86901; 99221; J7030; J7120; G0378; J2405

== ENCOUNTER 2024-02-22 11:05 | Day surgery (SDC) | payer BC, SELFPAY ==
[2024-02-16 08:41] LABS: Hematocrit 39.3 % (37-47); Hemoglobin 12.8 g/dL (12.0-15.0); Mean Corp Hgb Conc 32.6 g/dL (32-36); Mean Corpuscular Hgb 27.9 pg (27.0-32.0); Mean Corpuscular Volume 85.8 fL (81-99); Mean Platelet Vol. 9.6 fl (6.2-12.0); Platelet Count 394 K/mm3 (150-450); RBC Distribution Width CV 14.6 % (11.6-14.6); RBC Distribution Width SD 45.7 fl (35.1-43.9); Red Blood Count 4.58 M/mm3 (4.2-5.4)
[2024-02-22] VITALS (11 sets, daily range): BP systolic 101–111; BP diastolic 50–72; PULSE 70–97; RESP 16–18; TEMP 36.2–36.6; O2SAT 97–100; BMI 26.8
--- NOTE | 2024-02-22 09:05 | PCM.HP.BLA ---
History and Physical Date of Admission: 02/22/24 Vital Signs 08/14/2399:56 02/01/2415:39 02/01/2415:40 Height 5 ft 1 in 5 ft 1 in 5 ft 1 in Weight: 142 lb BMI 26.8 BP 115/71 Intake Visit Reasons: BS consult Retail Seasonal Specialist Required: No Is patient in pain?: No Allergies No Known Allergies Allergy (Verified 02/02/24 15:40) Medications ?Medication ?Instructions ?Recorded ?Confirmed ?Type sertraline 50 mg tablet 75 mg (1.5 x 50 mg) PO DAILY 30 06/09/23 02/02/24 Rx days #45 tabs Post menopausal: No Patient : No PFSH Medical History (Updated 09/16/23 @ 08:59 by Meghana Patel) Wears glasses Alcohol use Smoker Vaginal delivery Anxiety Depression Social History household members: spouse housing: house number of children: 0 Smoking Status: Current every day smoker tobacco type: cigarettes substance use type: does not use seatbelt use: always do you feel safe at home: Yes additional social history: - Gautam HPI BS consult Details: GEORGIE STAPLETON is a 28 year old who presents for sterilization consult she and her has discussed this for a logn time, they previously didn't want any children and now have had one, definitely want sterilization, discussed risk of regret, want to proceed. History 1 Elective abortions Hx Para 0 Spontaneous abortions Hx # Term Pregnancies Ectopic pregnancies Hx # Pregnancies Multiple births # of living children Past Pregnancies Del. Date Name GA/Weeks Outcome Route Bth Weight Infant Gen Labor Lgth Anesthesia Del Locatn Provider FOB 08/15/23 Juliet 39 live - full term Female [facility] [place] Delivery Date: 08/15/23 Last Updated by: Nelli Vee IOL ROS Const Constitutional: Denies fatigue, fever(s), headache(s), increased appetite, poor appetite, weight gain or weight loss Cardio Card: Denies chest pain Resp Resp: Denies dyspnea GI GI: Reports as per HPI; Denies abdominal pain, constipation, nausea or vomiting : Reports as per HPI; Denies difficulty voiding, dysuria, hematuria, pelvic pain, urinary frequency, urinary incontinence, urinary hesitancy, urinary urgency, vaginal discharge, vaginal dryness, vaginal odor, vaginal pruritus or other Exam Const General: cooperative, healthy appearing, comfortable, no acute distress and well developed Orientation: alert [facility] Head: normal to inspection and normocephalic Ears: hearing grossly normal bilaterally and external ears normal Nose: external nose normal and nares normal Face and sinus: normal facial exam Neck Neck: normal visual inspection, no lymphadenopathy and trachea midline Thyroid: thyroid normal Resp Effort & Inspection: normal respiratory effort Auscultation: clear to auscultation bilaterally Cardio Rate: regular rate Rhythm: regular rhythm Heart Sounds: S1 normal and S2 normal Musc Other: gross motor intact no deficits, full bilateral strength Skin General: no rashes or lesions noted Neuro Motor: muscle tone normal throughout Coding Level of Care Code Off vis,est,level 4 Diagnoses Sterilization Z30.2 Depression, unspecified depression type F32.A Depression Type: unspecified Assessment and Plan Assessment and Plan (1) Sterilization: Status: Acute Comment: patient and have desired sterilization for a while, discussed options, PPTL or laparoscopic interval it able, tubal at time of csection if done. (2) Depression: Status: Acute Qualifiers: Depression Type: unspecified Qualified Code(s): F32.A - Depression, unspecified Comment: sertraline 50mg daily started counseling 02/2023; declines need for increase in med currently Plan After discussing the patient's diagnosis and treatment plan options, patient wishes to proceed with surgical management. I have discussed with the patient the risks, benefits, and alternatives of the procedure which include but are not limited to risks of anesthesia, bleeding, infection, possible damage to bowel, bladder, or surrounding vasculature which could lead to additional surgery to evaluate any complications. Patient agrees to procedure and wishes to proceed. ACOG/uptodate references given for additional information regarding procedure. UPDATE- I have seen the patient and performed any clinically relevant updates to the history and physical exam. Meagan Ervin MD
[2024-02-22 11:27] LABS: Internal QC Validated? YES +Cl - CLEAR BKGD; Pregnancy, Urine Negative Negative
[2024-02-22] MEDS: Lactated Ringers 1,000 ML 15 ML IV ×2 (11:43→14:03)
--- NOTE | 2024-02-22 12:20 | PCM.PRE.AN2 ---
ASA Classification* ASA Classification ASA Classification: 2 Assessment & Plan Anesthesia* Anesthesia Assessment Anesthesia Assessment: Discussed sedation and/or anesthesia options, risks, benefits, and alternatives with patient/parents/legal guardian/POA. Questions invited. The patient/parents/legal guardian/POA seems to understand and agrees to proceed with anesthesia plan. Reviewed the physical assessment, medical history, allergy history and patient home medications list prior to surgery/procedure/anesthetic and documented any changes. Performed airway and anesthesia risk assessments. Anesthesia Type Anesthesia Type: General History Source History Obtained from:: Patient and Chart Anesthesia Focused Assessment* Temperature: 98 F Pulse Rate: 97 Blood Pressure: 109/70 Respiratory Rate: 18 Pulse Ox: 100 Oxygen Delivery Method: Room Air Airway Assessment Mouth opens: >3 cm Mallampati Score: I Teeth Condition: Caps/Crowns (Right lower molar has crown and tight) Neck Range of motion (ROM): Full ROM Focused Labs Anesthesia Preop lab: CBC WBC 9.0 K/mm3 (4.4-11.0) 02/16/24 08:29 RBC 4.58 M/mm3 (4.2-5.4) 02/16/24 08:29 Hgb 12.8 g/dL (12.0-15.0) 02/16/24 08:29 Hct 39.3 % (37-47) 02/16/24 08:29 Plt Count 394 K/mm3 (150-450) 02/16/24 08:29 CHEMISTRY COAG Urine Test Negative Negative 02/22/24 10:20 Pre-Assessment Diagnosis/Proposed Procedure Planned Operative Procedure(s): LAP BILAT SALPINGECTTOMY Anesthesia History 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 When Was Last Pacemaker Check QUESTION #4 FULL TEXT: You/Your Family Experience fever (hyperthermia) with Anesthesia Last Oral Intake Last Oral intake: Last Oral Intake NPO since 00:00 02/22/24 11:44 Meds taken in AM with sips of No 02/22/24 11:44 water? Meds patient instructed to take am of surgery PONV PONV - news photographer: PONV - news photographer Female Yes 02/15/24 14:42 HX of Motion Sickness Yes 02/15/24 14:42 HX of N/V After Surgery No 02/15/24 14:42 Non-Smoker No 02/15/24 14:42 Duration of Surgery greater No 02/15/24 14:42 than 60 minutes Number of Risk Factors 2 02/15/24 14:42 PONV Score Moderate Risk 02/15/24 14:42 Height & Weight Height & Weight: Anesthesia: Height & Weight Height 5 ft 1 in 02/22/24 11:44 Weight: 64.41 kg 02/22/24 11:44 Body Mass Index (BMI) 26.8 02/22/24 11:44 Respiratory Assessment Respiratory Assessment - news photographer: Respiratory Tract Infection Hx - news photographer Hx Respiratory Tract Infection Yes: RESP INFECTION/TREATED/ 02/15/24 14:42 RESOLVED STOP Sleep Apnea STOP Sleep Apnea - news photographer: STOP Sleep Apnea - news photographer Hx Hypertension No 02/15/24 14:42 Hx Sleep Apnea No 02/15/24 14:42 CPAP BIPAP Do you snore loudly (louder No 02/15/24 14:42 than talking or can be heard Do you often feel tired/ No 02/15/24 14:42 fatigued/ sleepy during daytime? Has anyone observed you stop No 02/15/24 14:42 breathing during sleep? STOP Results Negative 02/15/24 14:42 QUESTION #5 FULL TEXT : Do you snore loudly (louder than talking or can be heard through closed doors)? 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 Specify any problems Hx of Preganancy in last 3 No 02/15/24 14:42 Months Nurse Filling Out Transfusion DSCHRIBER 02/15/24 14:42 & Questions: Date: 02/15/24 02/15/24 14:42 Time: 14:45 02/15/24 14:42 Patient unable to answer at this time (ie. confused, unrespo /Reproduction History /Reproductive History - news photographer: /Reproductive Hx- news photographer Hx Now No 02/15/24 14:42 Gestational Age (in weeks): EDC: Hx Hx Para Hx Section SAB No 02/15/24 14:42 Active Medications Active Medications: Current Medications Generic Name Dose Route Start Last Admin Trade Name Freq PRN Reason Stop Dose Admin Lactated Ringer's 1,000 mls @ 15 mls/hr 02/22/24 11:15 02/22/24 11:43 IV 15 mls/hr .Q48H NAA Administration PFSH Medical History History of Clostridium difficile infection Low iron Anemia Asthma Wears glasses Alcohol use Smoker Vaginal delivery Anxiety Depression Home Medications ?Medication ?Instructions ?Recorded ?Last Taken ?Type sertraline 50 mg tablet 75 mg (1.5 x 50 mg) PO DAILY 06/09/23 02/21/24 22:00 Rx days #45 tabs Allergy/AdvReac Type Severity Reaction Status Date / Time No Known Allergies Allergy Verified 02/22/24 11:42 Surgical History History of dental surgery Social History household members: spouse housing: house number of children: 0 Smoking Status: Current every day smoker tobacco type: cigarettes substance use type: does not use seatbelt use: always do you feel safe at home: Yes additional social history: - Gautam Review of Systems (Anesthesia) ROS Narrative System reviewed and no additional complaints, except as documented.
--- NOTE | 2024-02-22 12:28 | PCM.PRE.AN2 ---
ASA Classification* ASA Classification ASA Classification: 2 Assessment & Plan Anesthesia* Anesthesia Assessment Anesthesia Assessment: Discussed sedation and/or anesthesia options, risks, benefits, and alternatives with patient/parents/legal guardian/POA. Questions invited. The patient/parents/legal guardian/POA seems to understand and agrees to proceed with anesthesia plan. Reviewed the physical assessment, medical history, allergy history and patient home medications list prior to surgery/procedure/anesthetic and documented any changes. Performed airway and anesthesia risk assessments. Anesthesia Type Anesthesia Type: General History Source History Obtained from:: Patient and Chart Anesthesia Focused Assessment* Temperature: 98 F Pulse Rate: 97 Blood Pressure: 109/70 Respiratory Rate: 18 Pulse Ox: 100 Oxygen Delivery Method: Room Air Airway Assessment Mouth opens: >3 cm Mallampati Score: I Teeth Condition: Caps/Crowns (Right lower molar has a crown and is tight.) and Missing (1 missing tooth left lower molar) Neck Range of motion (ROM): Full ROM Focused Labs Anesthesia Preop lab: CBC WBC 9.0 K/mm3 (4.4-11.0) 02/16/24 08:29 RBC 4.58 M/mm3 (4.2-5.4) 02/16/24 08:29 Hgb 12.8 g/dL (12.0-15.0) 02/16/24 08:29 Hct 39.3 % (37-47) 02/16/24 08:29 Plt Count 394 K/mm3 (150-450) 02/16/24 08:29 CHEMISTRY COAG Urine Test Negative Negative 02/22/24 10:20 Pre-Assessment Diagnosis/Proposed Procedure Planned Operative Procedure(s): LAP BILAT SALPINGECTTOMY Anesthesia History 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 When Was Last Pacemaker Check QUESTION #4 FULL TEXT: You/Your Family Experience fever (hyperthermia) with Anesthesia Last Oral Intake Last Oral intake: Last Oral Intake NPO since 00:00 02/22/24 11:44 Meds taken in AM with sips of No 02/22/24 11:44 water? Meds patient instructed to take am of surgery PONV PONV - chief communications officer: PONV - chief communications officer Female Yes 02/15/24 14:42 HX of Motion Sickness Yes 02/15/24 14:42 HX of N/V After Surgery No 02/15/24 14:42 Non-Smoker No 02/15/24 14:42 Duration of Surgery greater No 02/15/24 14:42 than 60 minutes Number of Risk Factors 2 02/15/24 14:42 PONV Score Moderate Risk 02/15/24 14:42 Height & Weight Height & Weight: Anesthesia: Height & Weight Height 5 ft 1 in 02/22/24 11:44 Weight: 64.41 kg 02/22/24 11:44 Body Mass Index (BMI) 26.8 02/22/24 11:44 Respiratory Assessment Respiratory Assessment - chief communications officer: Respiratory Tract Infection Hx - chief communications officer Hx Respiratory Tract Infection Yes: RESP INFECTION/TREATED/ 02/15/24 14:42 RESOLVED STOP Sleep Apnea STOP Sleep Apnea - chief communications officer: STOP Sleep Apnea - chief communications officer Hx Hypertension No 02/15/24 14:42 Hx Sleep Apnea No 02/15/24 14:42 CPAP BIPAP Do you snore loudly (louder No 02/15/24 14:42 than talking or can be heard Do you often feel tired/ No 02/15/24 14:42 fatigued/ sleepy during daytime? Has anyone observed you stop No 02/15/24 14:42 breathing during sleep? STOP Results Negative 02/15/24 14:42 QUESTION #5 FULL TEXT : Do you snore loudly (louder than talking or can be heard through closed doors)? 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 Specify any problems Hx of Preganancy in last 3 No 02/15/24 14:42 Months Nurse Filling Out Transfusion DSCHRIBER 02/15/24 14:42 & Questions: Date: 02/15/24 02/15/24 14:42 Time: 14:45 02/15/24 14:42 Patient unable to answer at this time (ie. confused, unrespo /Reproduction History /Reproductive History - chief communications officer: /Reproductive Hx- chief communications officer Hx Now No 02/15/24 14:42 Gestational Age (in weeks): EDC: Hx Hx Para Hx Section SAB No 02/15/24 14:42 Active Medications Active Medications: Current Medications Generic Name Dose Route Start Last Admin Trade Name Freq PRN Reason Stop Dose Admin Lactated Ringer's 1,000 mls @ 15 mls/hr 02/22/24 11:15 02/22/24 11:43 IV 15 mls/hr .Q48H NAA Administration PFSH Medical History History of Clostridium difficile infection Low iron Anemia Asthma Wears glasses Alcohol use Smoker Vaginal delivery Anxiety Depression Home Medications ?Medication ?Instructions ?Recorded ?Last Taken ?Type sertraline 50 mg tablet 75 mg (1.5 x 50 mg) PO DAILY 06/09/23 02/21/24 22:00 Rx days #45 tabs Allergy/AdvReac Type Severity Reaction Status Date / Time No Known Allergies Allergy Verified 02/22/24 11:42 Surgical History History of dental surgery Social History household members: spouse housing: house number of children: 0 Smoking Status: Current every day smoker tobacco type: cigarettes substance use type: does not use seatbelt use: always do you feel safe at home: Yes additional social history: - Gautam Review of Systems (Anesthesia) ROS Narrative System reviewed and no additional complaints, except as documented.
--- NOTE | 2024-02-22 13:05 | FALS_PTH ---
PATIENT: GEORGIE STAPLETON [place] [facility] [id number] AGE/SX: 28/F ROOM: RE02/22/[address]: Dr. Meagan Ervin MD : 1995 BED: DIS: 02/22/2024 SPEC #: [id number] RECD: 02/22/24 18:26 STATUS: FÁTIMA REQ #: [id number] NACHO: 02/22/24 13:[address]: Meagan Ervin DEPT: SURGICAL PATHOLOGY RECD BY: Barbara Jaquez ENTERED: 02/23/24 08:15 SP TYPE: FALL TUBES OTHR DR: Dr. Bebeto Dior MD Tissues: Fallopian tube Procedures: Surgery Specimen Level II HEADER OPERATION: Laparoscopic salpingectomy PRE-OP DIAGNOSIS: Patient desires sterilization TISSUE SUBMITTED: Bilateral fallopian tubes MICROSCOPIC DIAGNOSIS Right and left fallopian tubes, bilateral salpingectomies: Complete cross-sections of two fallopian tubes. One fallopian tube with benign paratubal cyst. AM: 02/24/2024 MICROSCOPIC DESCRIPTION Slides are reviewed. GROSS DESCRIPTION Received in fixative is one container labeled with the patient's name and designated bilateral fallopian tubes. The specimen consists of two fallopian tubes with an average length of 7.0 cm and has an average diameter of 0.5 cm. Both fallopian tubes have normal fimbriated ends. One fallopian tube contains a paratubal cyst adjacent to the fimbrial end measuring 0.7cm in greatest dimension and containing clear fluid. Butt Presser sections are submitted in two cassettes as follows: 1 - one fallopian tube, 2 - the other fallopian tube with paratubal cyst. / AM: 02/23/2024 TC:5 CPT: 23369,07916
[2024-02-22] MEDS: Bupivacaine 0.25% 30 ML Vial (13:10)
[2024-02-22] MEDS: FERRIC SUBSULFATE 8 GM SOLN (13:31)
--- NOTE | 2024-02-22 13:44 | PCM.POST.ANE ---
Anesthesia: Postop Eval I Current Vital Signs Temperature: 97.2 F Pulse Rate: 80 Blood Pressure: 106/58 Respiratory Rate: 16 Pulse Ox: 98 Oxygen Delivery Method: Room Air Assessment Airway patent: Yes Spontaneous unlabored respirations: Yes Mental status: Awake and Calm nausea: No Vomiting: No Anesthesia Complication: No Fluid Hydration Crystalloid volume administer (ml): 900 Total IV fluid infused: 900 Progress Note Anesthesia document: Postop Eval 1 completed: Yes
--- NOTE | 2024-02-22 14:18 | DCINST_ITS ---
Discharge Instructions Diet Discharge Diet: No restrictions Activity Discharge Activity: Return to Normal Activity, May Not Drive (for 2 weeks or while taking narcotic pain meds.), May Shower and May Take a Tub Bath (in 7 days) May resume sexual activity in: 1 week Weight Bearing Status: Full weight bearing Dressing / Incision Call your doctor if your incision/area has: Continuous Slow Oozing, Sudden Increased Bleeding, Increased Pain/ Swelling, Increased Redness and Foul Smelling Discharge Call your doctor if you observe: Fever of 101 or Higher, Using more than 1 pad per hour, Shortness of breath, Chest pain and Uncontrolled pain Suture Line Care: Avoid Pulling/Pushing and Avoid Pinching/Bending Remove Dressing in: 1 week (if present) Cleanse incision/area with: Soap & Water and Keep Dressing Clean & Dry Follow Up Care When: Call to make an appointment with your doctor for a fu/incision check in 1- 2 weeks. Test Results: Test results from this visit will be discussed in further detail at your follow- up appointment, if applicable. Discharge Plan Admission Attending Provider: Meagan Ervin Primary Care Provider: Bebeto Dior Instructions Print Language: Citizen Of [place] Discharge Orders/Prescriptions Prescriptions: New oxycodone-acetaminophen [Percocet] 5-325 mg tablet 1 tab PO Q6H PRN (Reason: pain) 7 Days Qty: 10 0RF naproxen 500 mg tablet 500 mg PO BID PRN PRN (Reason: Pain) Qty: 30 1RF No Action sertraline 50 mg tablet 75 mg PO DAILY 30 Days Qty: 45 12RF Referrals / Follow Up: Bebeto Dior MD [Primary Care Provider] - Disposition Disposition (needs filled in before D/C Order can be placed): Home, Self Care
--- NOTE | 2024-02-22 14:18 | PCM.OPRPT ---
Problems Associated Problem List Diagnoses (1) Sterilization: Report of Operation Date of Procedure: 02/22/24 Pre-Operative Diagnosis: see problem list Post-Operative Diagnosis: same Surgery/Procedure Performed:: laparoscopic bilateral salpingectomy Description of Surgical Findings:: nl uterus tubes ovaries Surgeon: Meagan Ervin Type of Anesthesia: General and Local Specimen's removed: tubes Drains: none Estimated Blood Loss (mL): 50 Fluids Replaced: crystalloid Description of Procedure: Patient was taken in the operating room and was placed under general anesthesia was prepped and draped in normal sterile fashion in the dorsal lithotomy position. Bladder was drained of clear urine and SCDs were on preoperatively. Uterus was sounded and a uterine manipulator was placed after dilating. Attention was then paid to the abdominal portion of the procedure and the umbilicus was elevated with towel clamps and injected with Marcaine and after a 5 mm incision was made and the Veress needle was entered into the abdomen confirmed to be intra-abdominal with a low opening pressure of less than 5 mmHg. Abdomen was insufflated with CO2 gas and a 5 mm optical trocar was placed under direct visualization. A 5 mm port suprapubically was placed under direct visualization. Uterus was well visualized and bilateral fallopian tubes identified and bilateral tubes were elevated and transecting across the mesosalpinx and the attachment to the uterine corpus bilaterally the tubes were removed without complication. Excellent hemostasis was noted. Fallopian tubes were removed through the lower port site without complication. Liver and upper abdomen were visualized notably within normal limits and no other gross abnormalities were seen in the abdomen. All instruments removed from the abdomen after gas was desufflated. Port sites were closed with 3-0 Monocryl Steri's and op sites were applied. All instruments removed from the vagina and patient was awoken and taken recovery in stable condition. Grafts/Implants Used: none Procedure Start Time: 12:38 Procedure Stop Time: 13:42 Complications none Admit VTE Documentation VTE Present on Admission: No VTE Mechan Device Prophylaxis: SCD's Multi Select Codes Urinary/Genital Urinary/Genital CPT Codes: 07814 Laproscopic BS/O
--- NOTE | 2024-02-22 15:12 | PCM.POSTANE2 ---
Anesthesia Postop Eval I Sum Postop Eval Completion status Anesthesia document: Postop Eval 1 completed: Yes Anesthesia Postop Eval I Summary Anesthesia Postop Eval I Summary: Anesthesia Postop Eval I: Assessment Summary Airway patent Yes 02/22/24 13:47 Spontaneous unlabored Yes 02/22/24 13:47 respirations Mental status Awake,Calm 02/22/24 13:47 nausea No 02/22/24 13:47 Vomiting No 02/22/24 13:47 Anesthesia Postop Eval I: Fluid Summary Crystalloid volume administer 900 02/22/24 13:47 (ml) Colloids volume administered ( ml) Blood Product volume administered (ml) Total IV fluid infused 900 02/22/24 13:47 Anesthesia Postop Eval I: Summary Notes Anesthesia Complication No 02/22/24 13:47 Anesthesia Complication Comment: Post-operative progress note Anesthesia: Postop Eval II Evaluation Mental status: Awake and Calm Pain Level: 1 nausea: No Vomiting: No Complications Anesthesia Complication: No
== END 2024-02-22 14:45 | disposition home or self-care (01) ==
LOC: SDC 11:07 → AC 11:08
PROVIDERS: PCP Family Medicine; Referring Provider Obstetrics & Gynecology; Visit Provider Obstetrics & Gynecology
PROC: (CPT 58661; principal; 2024-02-22 12:50)
DX: Z30.2 Encounter for sterilization (principal); F32.A Depression, unspecified; F17.210 Nicotine dependence, cigarettes, uncomplicated; F41.9 Anxiety disorder, unspecified; Z79.899 Other long term (current) drug therapy; N83.8 Other noninflammatory disorders of ovary, fallopian tube and broad ligament
CPT/HCPCS: 58661; 36415; 81025; 85027; 86850; 86900; 86901; 88302; J7120; J2405